=== PATIENT | female | born 1970 | race Caucasian/White ===

== ENCOUNTER 2020-08-12 08:47 | Outpatient (REF) | payer OTHER, SELFPAY | END 2020-08-12 08:48 | disposition home or self-care (01) | LOC: HO.HAP 08:47 | PROVIDERS: Visit Provider Internal Medicine | DX: Z46.1 Encounter for fitting and adjustment of hearing aid (principal) | CPT/HCPCS: V5266 ==

== ENCOUNTER → 2021-03-30 11:16 | Outpatient (BNVA) | payer SELFPAY | PROVIDERS: PCP Internal Medicine; Visit Provider Internal Medicine | DX: Z02.79 Encounter for issue of other medical certificate (principal) ==

== ENCOUNTER 2021-03-30 15:12 | Outpatient (REF) | payer OTHER, SELFPAY | END 2021-03-30 15:13 | disposition home or self-care (01) | LOC: HO.HAP 15:12 | PROVIDERS: Visit Provider Internal Medicine | DX: Z46.1 Encounter for fitting and adjustment of hearing aid (principal); H90.3 Sensorineural hearing loss, bilateral | CPT/HCPCS: V5266 ==

== ENCOUNTER 2021-04-09 08:29 | Outpatient (REF) | payer OTHER, SELFPAY ==
[2021-04-09 11:28] LABS: Glucose Urine UA NEG (NEG); Leukocyte Esterase Urine TRACE (NEG); Nitrite Urine NEG (NEG); Specific Gravity - Urine <= 1.005 (1.005-1.025); Urine Blood NEG (NEG); Urine Ketones NEG (NEG); Urine Protein NEG (NEG-TRACE)
[2021-04-09 11:30] LABS: Appearance Urine HAZY; Color Urine STRAW
[2021-04-09 11:47] LABS: Bacteria Urine TRACE /LPF; RBC Urine 0-2 /HPF (0); Squamous Epithelial Cell Urine 1+ /LPF
== END 2021-04-09 08:30 | disposition home or self-care (01) ==
LOC: HO.HMGCLDS 08:29
PROVIDERS: PCP Internal Medicine; Visit Provider Internal Medicine
DX: R30.0 Dysuria (principal)
CPT/HCPCS: 81001

== ENCOUNTER 2021-06-15 07:59 | Outpatient (REF) | payer OTHER, SELFPAY ==
--- NOTE | 2021-06-15 13:43 | MHC.AU.AHA ---
Adult Audiological Evaluation Date of Visit: 06/15/21 Flake Cutter Operator Used: Not Applicable Reason for Appointment: Audiologic re-evaluation due to question of change in hearing ability. 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 She notes the right aid obtained from [employer] in 2013 has intermittently been changing sound quality with brief episodes of shutting down. Previous Hearing Test Results: 09/04/2013 [facility] Right Ear - Severe to profound mixed hearing loss. Left Ear - Profound sensorineural hearing loss. Speech discrimination testing was not performed. Medical History: Medical History: Unremarkable Medical History Medication List: None Hearing Instrument History- Right Ear: Resort Manager: Fluent Home Model: Envestnet SP 5 [employer] Serial Number: [id number] Battery Size: 13 Repair Warranty: Loss and Damage Warranty: Dispensed By: [facility] Date of Fittin Hearing Instrument History- Left Ear: Resort Manager: None Otoscopy: Right Ear: Unremarkable Left Ear: Unremarkable Tympanometry: Tympanometry performed due to: To assess integrity of the middle ear system Right Ear: Hypercompliant Middle Ear System (Type Ad) Left Ear: Hypercompliant Middle Ear System (Type Ad) Hearing Evaluation: Transducer(s) Used: Insert Earphones Bone Conduction Method: Conventional Audiometry Stimuli Used: Pure Tones Right Ear: Description of Hearing: Severe to profound mixed hearing loss. Left Ear: Description of Hearing: Profound sensorineural hearing loss. Word Discrimination: Method: Monitored Live Voice Word Lists Used: NU-6 Right Ear: 48% at 105 dB HL Left Ear: CNT Comparison: Compared to most recent evaluation: Right ear has decreased 5-10 dB at 250-1000 Hz with the remaining frequencies stable. Recommendations: Trial with new amplification is recommended. Medical clearance from a physician is required before fitting. Obtaining prior authorization from insurance for new right hearing aid. Hearing Aid Fitting will be scheduled when all materials arrive. Hearing aid maintenance performed today on current aid. Current hearing aid reprogrammed with updated test results. Audiological re-evaluation in one year. Will send a reminder card Diagnosis: Primary Diagnosis: H90.3 Bilateral Sensorineural Hearing Loss Services Performed: Comprehensive Audiological Evaluation (CPT 84955) Tympanometry (CPT 10392) Signature: Provider: Maxim Cortes, LUCIANA-A
--- NOTE | 2021-06-16 12:22 | MHC.AU.HAS ---
Hearing Aid Evaluation Date of Visit: 06/15/21 Historical Information: Description of Hearing: Right Ear - Severe to profound sensorineural hearing loss with 48% speech understanding at 105 dB HL. Left Ear - Profound sensorineural hearing loss with no speech discrimination ability. Current personal amplification information, if applicable: Right Ear - Oticon Hudson SP5 BTE Summary: Due to the age of the current hearing aid and the intermittent problem with function of the aid, recommend a new hearing aid for the right ear to better facilitate communication. Hearing Aid Prescription: Based on the individual?s shared listening needs, communication environments, dexterity, desire for connectivity, and personal preferences, the following prescription for amplification has been made: Right ear: Candy Department Manager: OtPurewine Model: Xceed 2 BTE SP Battery Size: 13 Color: 90 -Chroma Beige Tubing: Tube Lock Type of Mold: Microsoft Hypoallergenic Shell with [place]omac Lock Left ear: Candy Department Manager: None Plan of Care: Patient wishes to purchase hearing aids as prescribed Action Taken/Action Needed: Earmold Impressions Taken Prior authorization to be requested Medical Clearance to be requested from PCP/ENT Hearing Instrument Fitting to be scheduled when materials arrive Primary Diagnosis: H90.3 Bilateral Sensorineural Hearing Loss Signature: Provider: Maxim Cortes, CCC-A
--- NOTE | 2021-06-16 12:23 | MHC.AU.MED ---
Medical Clearance for Hearing Instrumentation Date: 06/16/21 Patient Name: Sharonda Florence Date of : 1970 Primary Care Provider: Referring Provider: Henrik Skelton MD We have seen your patient on 06/15/21 and have determined that they are a candidate for amplification (See accompanying report). Specifically, they would benefit from: Hearing aid use in the right ear There is a statute that addresses Medical Evaluation Requirements prior to fitting a patient with a hearing aid. According to [place] statute 265 CMR:6.03(1), (a) General. Except as provided in 265 CMR 6.03(1)(b), a reporting process consultant shall not sell a hearing aid unless the prospective user has presented to the reporting process consultant a written statement signed by a licensed physician that states that the patient's hearing loss has been medically evaluated and the patient may be considered a candidate for a hearing aid. The medical evaluation must have taken place within the preceding six months. Please note: Due to the [place] Statute referenced above, we cannot accept a signature other than that of a licensed physician. [place] and [place] signatures cannot be accepted. I am in agreement with the above recommendation. There is no medical contraindication for hearing instrumentation. Physician Signature Date Physician Name (Printed)
== END 2021-06-15 08:00 | disposition home or self-care (01) ==
LOC: HO.SH 07:59
PROVIDERS: Visit Provider Internal Medicine
DX: Z46.1 Encounter for fitting and adjustment of hearing aid (principal); H90.3 Sensorineural hearing loss, bilateral
CPT/HCPCS: 92557; 92567; 92590; V5275

== ENCOUNTER 2022-02-05 07:55 | Outpatient (REF) | payer OTHER, SELFPAY ==
[2022-02-05 08:06] LABS: MANUAL DIFF FLAG NO
[2022-02-05 08:16] LABS: Basophils Percent Auto 0.6 % (0-2); Eosinophils Absolute Auto 0.1 X10*3/uL (0.0-0.4); Eosinophils Percent Auto 2.2 % (0-4); Hematocrit 37.4 % (37.0-47.0); Hemoglobin 12.4 g/dl (12.0-16.0); Lymphocytes Absolute Auto 1.3 X10*3/uL (1.2-4.9); Lymphocytes Percent Auto 40.4 % (20-40); Mean Corpuscular HGB Conc 33.2 g/dl (31.0-35.0); Mean Corpuscular Hemoglobin 31.6 pg (27.0-33.0); Mean Corpuscular Volume 95.4 fL (80.0-98.0); Mean Platelet Volume 8.6 fL (9.4-12.3); Monocytes Absolute Auto 0.3 X10*3/uL (0.1-1.2); Monocytes Percent Auto 10.9 % (2-11); Neutrophils Absolute Auto 1.4 x10*3/uL (2.0-8.3); Neutrophils Percent Auto 45.9 % (45-73); Platelet Count 230 X10*3/uL (160-400); Red Blood Count 3.92 X10*6/uL (4.20-5.50); Red Cell Distribution Width 12.7 % (11.0-16.0); White Blood Count 3.1 X10*3/uL (4.8-10.8)
[2022-02-05 09:13] LABS: Alanine Aminotransferase 30 U/L (0-31); Albumin Level 4.5 g/dL (3.5-5.0); Alkaline Phosphatase 77 U/L (39-117); Anion Gap 11 (12-20); Aspartate Amino Transferase 35 U/L (5-31); Bilirubin Total 0.7 mg/dL (0.0-1.0); Blood Urea Nitrogen 18 mg/dL (9-16); Calcium 9.1 mg/dL (8.4-10.2); Carbon Dioxide 28 mmol/L (22-29); Chloride 105 mmol/L (96-108); Cholesterol 162 mg/dL; Estimated Glomerular Filt Rate > 60; Glucose Fasting 99 mg/dL (60-99); HDL Cholesterol 76 mg/dL; LDL Cholesterol Calculated 81 mg/dl; Potassium 4.2 mmol/L (3.3-5.1); Sodium 140 mmol/L (135-145); Triglycerides 29 mg/dL; Vitamin D 25-OH Total 23.6 ng/mL (>30)
[2022-02-05 09:21] LABS: Rheumatoid Factor < 15.0 IU/mL (<15.0)
[2022-02-05 09:24] LABS: Appearance Urine HAZY; Color Urine YELLOW; Glucose Urine UA NEG (NEG); Leukocyte Esterase Urine 2+ (NEG); Nitrite Urine POS (NEG); Specific Gravity - Urine 1.025 (1.005-1.025); UACC Culture Trigger YES; Urine Blood TRACE (NEG); Urine Ketones NEG (NEG); Urine Protein NEG (NEG-TRACE)
[2022-02-05 10:00] LABS: Bacteria Urine 4+ /LPF; Squamous Epithelial Cell Urine 4+ /LPF
[2022-02-07 22:13] LABS: Lyme Abs Screen <0.90 index
[2022-02-08 06:14] LABS: Folate 15.2 ng/mL (> or = 4.0); Vitamin B12 347 pg/mL (200-900)
[2022-02-09 08:25] LABS: Anti Nuclear Antibody Screen NEGATIVE (NEGATIVE)
== END 2022-02-05 07:56 | disposition home or self-care (01) ==
LOC: HO.LAB 07:55
PROVIDERS: PCP Internal Medicine; Visit Provider Nurse Practitioner Family
DX: Z13.29 Encounter for screening for other suspected endocrine disorder (principal); Z13.220 Encounter for screening for lipoid disorders; R53.83 Other fatigue; M25.50 Pain in unspecified joint
CPT/HCPCS: 36415; 80053; 80061; 81001; 81003; 82306; 82607; 82746; 84443; 85025; 86038; 86039; 86431; 86617; 86618; 87086; 87088; 87186

== ENCOUNTER 2022-05-09 16:54 | Outpatient (REF) | payer OTHER, SELFPAY ==
--- NOTE | ~2022-05-09 | XR_ITS ---
EXAMINATION: XR ELBOW, LEFT XR ELBOW, RIGHT XR HAND, LEFT XR HAND, RIGHT CLINICAL INFORMATION: Pain COMPARISON: None TECHNIQUE: 3 views of each elbow. 3 views of each hand. FINDINGS: Left elbow: No fracture or dislocation. Alignment is maintained. Joint spaces are maintained. No elbow joint effusion. The soft tissues are unremarkable. Right elbow: No fracture or dislocation. Alignment is maintained. Joint spaces are maintained. No elbow joint effusion. The soft tissues are unremarkable. Left hand: No fracture or dislocation. Alignment is maintained. Joint spaces are maintained. Small osteophytes at the third metacarpophalangeal joint. The soft tissues are unremarkable. No osseous erosions. Right hand: No fracture or dislocation. Alignment maintained. Joint spaces are maintained. Small osteophytes of the third metacarpophalangeal joint. The soft tissues are unremarkable. No osseous erosion. XR/XR elbow RT 2V IMPRESSION: Unremarkable appearance of both elbows. Mild degenerative change at both hands involving the third metacarpophalangeal joints with small osteophytes present. No osseous erosions.
--- NOTE | ~2022-05-09 | XR_ITS ---
EXAMINATION: XR KNEE, LEFT XR KNEE, RIGHT CLINICAL INFORMATION: Pain COMPARISON: None TECHNIQUE: 2 views of each knee upright FINDINGS: Left knee: No fracture or subluxation. Compartmental joint spaces are maintained. Small marginal osteophytes of the patellofemoral compartment. No joint effusion. The soft tissues are unremarkable. Right knee: No fracture or subluxation. Compartmental joint spaces are maintained. Small marginal osteophytes of the patellofemoral compartment. No joint effusion. The soft tissues are unremarkable. XR/XR knee RT 2V IMPRESSION: Mild degenerative changes at the patellofemoral compartments bilaterally. Otherwise unremarkable appearance of both knees.
--- NOTE | ~2022-05-09 | XR_ITS ---
EXAMINATION: XR KNEE, LEFT XR KNEE, RIGHT CLINICAL INFORMATION: Pain COMPARISON: None TECHNIQUE: 2 views of each knee upright FINDINGS: Left knee: No fracture or subluxation. Compartmental joint spaces are maintained. Small marginal osteophytes of the patellofemoral compartment. No joint effusion. The soft tissues are unremarkable. Right knee: No fracture or subluxation. Compartmental joint spaces are maintained. Small marginal osteophytes of the patellofemoral compartment. No joint effusion. The soft tissues are unremarkable. XR/XR knee LT 2V IMPRESSION: Mild degenerative changes at the patellofemoral compartments bilaterally. Otherwise unremarkable appearance of both knees.
--- NOTE | ~2022-05-09 | XR_ITS ---
EXAMINATION: XR ELBOW, LEFT XR ELBOW, RIGHT XR HAND, LEFT XR HAND, RIGHT CLINICAL INFORMATION: Pain COMPARISON: None TECHNIQUE: 3 views of each elbow. 3 views of each hand. FINDINGS: Left elbow: No fracture or dislocation. Alignment is maintained. Joint spaces are maintained. No elbow joint effusion. The soft tissues are unremarkable. Right elbow: No fracture or dislocation. Alignment is maintained. Joint spaces are maintained. No elbow joint effusion. The soft tissues are unremarkable. Left hand: No fracture or dislocation. Alignment is maintained. Joint spaces are maintained. Small osteophytes at the third metacarpophalangeal joint. The soft tissues are unremarkable. No osseous erosions. Right hand: No fracture or dislocation. Alignment maintained. Joint spaces are maintained. Small osteophytes of the third metacarpophalangeal joint. The soft tissues are unremarkable. No osseous erosion. XR/XR hand LT 2V IMPRESSION: Unremarkable appearance of both elbows. Mild degenerative change at both hands involving the third metacarpophalangeal joints with small osteophytes present. No osseous erosions.
--- NOTE | ~2022-05-09 | XR_ITS ---
EXAMINATION: XR ELBOW, LEFT XR ELBOW, RIGHT XR HAND, LEFT XR HAND, RIGHT CLINICAL INFORMATION: Pain COMPARISON: None TECHNIQUE: 3 views of each elbow. 3 views of each hand. FINDINGS: Left elbow: No fracture or dislocation. Alignment is maintained. Joint spaces are maintained. No elbow joint effusion. The soft tissues are unremarkable. Right elbow: No fracture or dislocation. Alignment is maintained. Joint spaces are maintained. No elbow joint effusion. The soft tissues are unremarkable. Left hand: No fracture or dislocation. Alignment is maintained. Joint spaces are maintained. Small osteophytes at the third metacarpophalangeal joint. The soft tissues are unremarkable. No osseous erosions. Right hand: No fracture or dislocation. Alignment maintained. Joint spaces are maintained. Small osteophytes of the third metacarpophalangeal joint. The soft tissues are unremarkable. No osseous erosion. XR/XR hand RT 2V IMPRESSION: Unremarkable appearance of both elbows. Mild degenerative change at both hands involving the third metacarpophalangeal joints with small osteophytes present. No osseous erosions.
--- NOTE | ~2022-05-09 | XR_ITS ---
EXAMINATION: XR ELBOW, LEFT XR ELBOW, RIGHT XR HAND, LEFT XR HAND, RIGHT CLINICAL INFORMATION: Pain COMPARISON: None TECHNIQUE: 3 views of each elbow. 3 views of each hand. FINDINGS: Left elbow: No fracture or dislocation. Alignment is maintained. Joint spaces are maintained. No elbow joint effusion. The soft tissues are unremarkable. Right elbow: No fracture or dislocation. Alignment is maintained. Joint spaces are maintained. No elbow joint effusion. The soft tissues are unremarkable. Left hand: No fracture or dislocation. Alignment is maintained. Joint spaces are maintained. Small osteophytes at the third metacarpophalangeal joint. The soft tissues are unremarkable. No osseous erosions. Right hand: No fracture or dislocation. Alignment maintained. Joint spaces are maintained. Small osteophytes of the third metacarpophalangeal joint. The soft tissues are unremarkable. No osseous erosion. XR/XR elbow LT 2V IMPRESSION: Unremarkable appearance of both elbows. Mild degenerative change at both hands involving the third metacarpophalangeal joints with small osteophytes present. No osseous erosions.
== END 2022-05-09 16:55 | disposition home or self-care (01) ==
LOC: HO.XRAY 16:54
PROVIDERS: PCP Internal Medicine; Visit Provider Internal Medicine
DX: M25.50 Pain in unspecified joint (principal)
CPT/HCPCS: 73070; 73120; 73560

== ENCOUNTER 2023-05-03 13:35 | Outpatient (AMB) | payer OTHER, SELFPAY ==
[2023-05-03 13:49] VITALS: BP 122/70; PULSE 77; O2SAT 98
--- NOTE | 2023-05-03 13:49 | MHC.PC.OV ---
Vital Signs 05/03/23 13:49 Height 5 ft 2.5 in BMI Reason not done Patient refused/unable BP 122/70 Blood Pressure Location Lt brachial Position Sitting Pulse 77 Pulse Source Pulse Oximeter Pulse Oximetry (%) 98 Oxygen Delivery Method Room Air Intake Visit Reasons: f/u Allergies codeine [CODEINE] Allergy (Intermediate, Verified 05/03/23 13:49) NAUSEA morphine Allergy (Unknown, Verified 05/03/23 13:49) nausea meperidine [Demerol] Adverse Reaction (Unknown, Verified 05/03/23 13:49) nausea,vomt From DEMEROL Adverse Reaction (Intermediate, Uncoded 05/03/23 13:49) NAUSEA Codeine Sulfate Adverse Reaction (Unknown, Uncoded 05/03/23 13:49) nausea,vomiting Medication List - Last Reconciled 05/03/23 by Henrik Skelton MD cholecalciferol (vitamin D3) 25 mcg PO DAILY meloxicam 7.5 mg PO DAILY multivitamin 1 tab PO DAILY omeprazole 20 mg PO DAILY sertraline 25 mg PO DAILY Tobacco use date assessed: 05/03/23 Dental Screening Dental Screen Date: 05/03/23 Did you have a dental visit in the last 12 months?: Yes Did you have a dental problem in the last 6 months where you did not have access to dental care?: No Was dental information given to patient?: Patient has dentist HPI f/u HPI Details 52-year-old overweight female with a history of GERD chronic back pain having polyarthralgia last seen in April 2022 coming in for follow-up. Multiple x-rays requested patient is up-to-date with colonoscopy, mammogram is due. Knee x-rays done showed mild degenerative changes bilateral, elbow x-ray shows mild degenerative changes both hands unremarkable elbow. Patient refused weight complains of numbness of the hands did check for the pulse and they were normal. Patient was asking for higher dose of the pain medication for the knees and the hands. As for anxiety this is stable. [facility] Medical History (Updated 05/03/23 @ 14:21 by Henrik Skelton MD) Basal 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 Bad odor of urine Fatigue Polyarthralgia Anxiety Surgical History (Updated 05/06/22 @ 12:13 by Henrik Skelton MD) History of cataract surgery Status post laminectomy with spinal fusion History of lumbar fusion History of delivery Social History (Updated 02/04/22 @ 12:33 by SHAHRZAD Loaiza) Housing: House Alcohol intake: never Patient Tobacco Use Status: Never used Tobacco e-Cigarette/Vaping Use: Never Used Second Hand Smoke Exposure: No service: No Current occupational status: unemployed Cognitive needs: No Hearing needs: Yes (hearing aide) Vision needs: Yes (reading glasses) Questionnaire PHQ-9 Over the last 2 weeks, how often have you been bothered by any of the following problems? 1. Little interest or pleasure in doing things: not at all 2. Feeling down, depressed, or hopeless: not at all 3. Trouble falling or staying asleep, or sleeping too much: not at all 4. Feeling tired or having little energy: not at all 5. Poor appetite or overeating: not at all 6. Feeling bad about yourself - or that you are a failure or have let yourself or your family down: not at all 7. Trouble concentrating on things, such as reading the newspaper or watching television: not at all 8. Moving or speaking so slowly that other people could have noticed. Or the opposite - being so fidgety or restless that you have been moving around a lot more than usual: not at all 9. Thoughts that you would be better off or of hurting yourself in some way: not at all Total score: 0 Depression Screening Interpretation: Negative Source: Developed by Drs. Atul Aguilar, Cyndi Baig, Eze Purvis and colleagues, with an educational alisha from [employer]). Thrive Questionnaire Date Thrive assessed: 05/03/23 I am a: Patient What is your living situation today?: I have a steady place to live Within the past 12 months, did the food you bought not last and you didn't have the money to get more?: Never true Within the past 12 months, did you worry whether your food would run out before you got money to buy more?: Never true Do you have trouble paying for medicines?: No Do you have trouble getting transportation to medical appointments?: No Do you have trouble paying your heating and electricity bill?: No Do you have trouble taking care of your child, family member or friend?: No Do you have trouble with day-to-day activities such as bathing, preparing meals, shopping, managing finances, etc.?: No Are you currently unemployed and looking for a job?: No Are you interested in more education?: No Currently or been in a relationship where the following occur: no concerns reported AUDIT C Alcohol Use Questionnaire (AUDIT-C) 1. How often do you have a drink containing alcohol?: Never Total Score: 0 Score Reviewed/Action Taken: No ZEINA-7 AMB Questionnaire ZEINA-7 Date ZEINA - 7 assessed: 05/03/23 Feeling nervous, anxious, or on edge: 1 = Several days Not being able to stop or control worryin = Several days Worrying too much about different things: 1 = Several days Trouble relaxin = Not at all Being so restless that it is hard to sit still: 0 = Not at all Becoming easily annoyed or irritable: 0 = Not at all Feeling afraid as if something awful might happen: 0 = Not at all Total ZEINA-7 score (0-4 normal; 5-9 mild; 10-14 moderate; 15-21 severe): 3 Source: Developed by Drs. Atul Aguilar, Cyndi Baig, Eze Purvis and colleagues, with an educational alisha from [employer]). Physical exam (Primary Care) Vital Signs: Last Vital Signs Pulse 77 05/03/23 13:49 BP 122/70 05/03/23 13:49 Pulse Ox 98 05/03/23 13:49 Oxygen Delivery Method Room Air 05/03/23 13:49 Tobacco/Smoking Status: Tobacco use Status Tobacco use date assessed 05/03/23 05/03/23 13:55 Patient Tobacco Use Status Never used Tobacco 05/03/23 13:55 e-Cigarette/Vaping Use Never Used 05/03/23 13:55 PHQ-9: PHQ-9 Score PHQ-9: Total score 0 05/03/23 13:55 Depression Screening Interpretation: Negative Thrive Assessment: Date of Thrive Assessment Date Thrive assessed 05/03/23 05/03/23 13:55 Currently or been in a relationship where the following occur: no concerns reported Const General: alert; No acute distress Eyes Conjunctivae: conjunctivae normal Resp Auscultation: clear to auscultation bilaterally Cardio Rate: regular rate Rhythm: regular rhythm GI Inspection: Yes normal to inspection Extrem General: Yes normal to inspection and No edema Assessment and Plan Assessment & Plan (1) Breast cancer screening by mammogram: Code(s): Z12.31 - Encounter for screening mammogram for malignant neoplasm of breast (2) Generalized anxiety disorder: Code(s): F41.1 - Generalized anxiety disorder Plan: Continue with medications as needed (3) GERD (gastroesophageal reflux disease): Code(s): K21.9 - Gastro-esophageal reflux disease without esophagitis Plan: Avoid the foods that causes that usually spicy foods, tomato products, juices, coffee, soda and foods that your sensitive to. After eating do not lie down, allow 3-4 hours before in lie down. And keep the head of bed above 30 degrees to avoid the acid from going up. (4) Osteoarthritis, knee: Code(s): M17.9 - Osteoarthritis of knee, unspecified Plan: Keep active. Anti-inflammatories to help. Take with food (5) Cervical cancer screening declined: Code(s): Z53.20 - Procedure and treatment not carried out because of patient's decision for unspecified reasons (6) Cervical cancer screening: Code(s): Z12.4 - Encounter for screening for malignant neoplasm of cervix (7) Bilateral hand numbness: Code(s): R20.0 - Anesthesia of skin Orders: Orders Complete Blood Count Auto Diff Today K21.9 - Gastro-esophageal reflux disease without esophagitis Thyroid Stimulating Hormone Today K21.9 - Gastro-esophageal reflux disease without esophagitis NE electromyogram (EMG) Today R20.0 - Anesthesia of skin Lipid Panel Today E78.00 - Pure hypercholesterolemia, unspecified, R20.0 - Anesthesia of skin Vitamin B12 and Folate Today R20.0 - Anesthesia of skin Vitamin D 25-OH Total Today R20.0 - Anesthesia of skin MM tomosynthesis screening BI Today Z12.31 - Encounter for screening mammogram for malignant neoplasm of breast Comprehensive Met. Panel Today K21.9 - Gastro-esophageal reflux disease without esophagitis Free T4 (Free Thyroxine) Today K21.9 - Gastro-esophageal reflux disease without esophagitis NE nerve conduction velocity Today R20.0 - Anesthesia of skin Referrals [facility] Referral Z12.4 - Encounter for screening for malignant neoplasm of cervix Medications: Changed From meloxicam 7.5 mg PO DAILY 90 tabs 1RF M25.50 - Pain in unspecified joint To meloxicam 15 mg PO DAILY 90 tabs 1RF M25.50 - Pain in unspecified joint Coding Level of Care Code Est Pt Level 4 (51924) Diagnoses Breast cancer screening by mammogram Z12.31 Generalized anxiety disorder F41.1 GERD (gastroesophageal reflux disease) K21.9 Osteoarthritis, knee M17.9 Cervical cancer screening declined Z53.20 Cervical cancer screening Z12.4 Bilateral hand numbness R20.0 Additional Codes PHQ-9 - 15836 - PHQ-9 Billing: ([id number])
== END 2023-05-03 14:31 | disposition home or self-care (01) ==
PROVIDERS: PCP Internal Medicine; Visit Provider Internal Medicine
DX: K21.9 Gastro-esophageal reflux disease without esophagitis (principal); Z12.31 Encounter for screening mammogram for malignant neoplasm of breast; F41.1 Generalized anxiety disorder; M17.9 Osteoarthritis of knee, unspecified; Z53.20 Procedure and treatment not carried out because of patient's decision for unspecified reasons; R20.0 Anesthesia of skin
CPT/HCPCS: 99214

== ENCOUNTER 2023-05-10 08:50 | Outpatient (REF) | payer OTHER, SELFPAY ==
--- NOTE | 2023-05-10 08:58 | EMG_ITS ---
Please see scanned EMG / Nerve Conduction Report. MTDD
[2023-05-10 09:19] LABS: MANUAL DIFF FLAG NO
[2023-05-10 09:36] LABS: Basophils Percent Auto 0.5 % (0-2); Eosinophils Absolute Auto 0.1 X10*3/uL (0.0-0.4); Eosinophils Percent Auto 1.4 % (0-4); Hematocrit 38.1 % (37.0-47.0); Hemoglobin 12.7 g/dl (12.0-16.0); Lymphocytes Absolute Auto 1.4 X10*3/uL (1.2-4.9); Lymphocytes Percent Auto 32.9 % (20-40); Mean Corpuscular HGB Conc 33.3 g/dl (31.0-35.0); Mean Corpuscular Hemoglobin 31.4 pg (27.0-33.0); Mean Corpuscular Volume 94.1 fL (80.0-98.0); Mean Platelet Volume 8.6 fL (9.4-12.3); Monocytes Absolute Auto 0.4 X10*3/uL (0.1-1.2); Monocytes Percent Auto 8.5 % (2-11); Neutrophils Absolute Auto 2.5 x10*3/uL (2.0-8.3); Neutrophils Percent Auto 56.7 % (45-73); Platelet Count 233 X10*3/uL (160-400); Red Blood Count 4.05 X10*6/uL (4.20-5.50); Red Cell Distribution Width 12.7 % (11.0-16.0); White Blood Count 4.3 X10*3/uL (4.8-10.8)
[2023-05-10 10:07] LABS: Alanine Aminotransferase 16 U/L (0-31); Albumin Level 4.5 g/dL (3.5-5.0); Alkaline Phosphatase 85 U/L (39-117); Anion Gap 13 (12-20); Aspartate Amino Transferase 28 U/L (5-31); Bilirubin Total 0.7 mg/dL (0.0-1.0); Blood Urea Nitrogen 21 mg/dL (9-16); Calcium 9.4 mg/dL (8.4-10.2); Carbon Dioxide 26 mmol/L (22-29); Chloride 105 mmol/L (96-108); Cholesterol 162 mg/dL (<200); Estimated Glomerular Filt Rate > 60; Glucose Random 94 mg/dL (60-115); HDL Cholesterol 69 mg/dL (>40); LDL Cholesterol Calculated 87 mg/dL (<100); Potassium 3.8 mmol/L (3.3-5.1); Sodium 140 mmol/L (135-145); Total Protein 7.1 g/dL (6.5-8.0); Triglycerides 33 mg/dL (<150)
[2023-05-10 10:27] LABS: Free T4 (Free Thyroxine) 0.79 ng/dL (0.71-1.85); Thyroid Stimulating Hormone 2.06 uIU/mL (0.32-4.0)
[2023-05-10 10:33] LABS: Vitamin B12 580 pg/mL (200-900)
== END 2023-05-10 08:51 | disposition home or self-care (01) ==
LOC: HO.NEURO 08:50
PROVIDERS: PCP Internal Medicine; Visit Provider Internal Medicine
DX: R20.0 Anesthesia of skin (principal); K21.9 Gastro-esophageal reflux disease without esophagitis; E78.00 Pure hypercholesterolemia, unspecified; E55.9 Vitamin D deficiency, unspecified
CPT/HCPCS: 36415; 80053; 80061; 82306; 82607; 82746; 84439; 84443; 85025; 95885; 95913

== ENCOUNTER 2023-05-26 09:34 | Outpatient (AMB) | payer OTHER, SELFPAY ==
--- NOTE | 2023-05-26 09:35 | MHC.PC.OV ---
Vital Signs 05/26/23 09:36 Height 5 ft 2.5 in BP 124/76 Blood Pressure Location Lt brachial Position Sitting Pulse 75 Pulse Source Pulse Oximeter Temp Source Skin Pulse Oximetry (%) 99 Oxygen Delivery Method Room Air Intake Visit Reasons: Bunion-both feet Intake Note: pt states bilateral foot pain due to bunion with worsening symptoms Flight Surgeon Required: No Allergies codeine [CODEINE] Allergy (Intermediate, Verified 05/26/23 10:06) NAUSEA morphine Allergy (Unknown, Verified 05/26/23 10:06) nausea meperidine [Demerol] Adverse Reaction (Unknown, Verified 05/26/23 10:06) nausea,vomt From DEMEROL Adverse Reaction (Intermediate, Uncoded 05/26/23 10:06) NAUSEA Codeine Sulfate Adverse Reaction (Unknown, Uncoded 05/26/23 10:06) nausea,vomiting Medication List - Last Reconciled 05/26/23 by ALEXANDER Jett cholecalciferol (vitamin D3) 25 mcg PO DAILY meloxicam 15 mg PO DAILY multivitamin 1 tab PO DAILY omeprazole 20 mg PO DAILY sertraline 25 mg PO DAILY Tobacco use date assessed: 05/26/23 HPI Bunion-both feet HPI Details Patient is a 52-year-old female who presents today with bilateral bunions for long time now and worsening symptoms lately, she also reports pain with ambulation. Patient of Dr. Skelton. No shortness of breath or chest pain. No injury [facility] Medical History Basal 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 Bad odor of urine Fatigue Polyarthralgia Anxiety Surgical History History of cataract surgery Status post laminectomy with spinal fusion History of lumbar fusion History of delivery Social History Housing: House Alcohol intake: never Patient Tobacco Use Status: Never used Tobacco e-Cigarette/Vaping Use: Never Used Second Hand Smoke Exposure: No service: No Current occupational status: unemployed Cognitive needs: No Hearing needs: Yes (hearing aide) Vision needs: Yes (reading glasses) Questionnaire Thrive Questionnaire Date Thrive assessed: 05/03/23 AUDIT C Alcohol Use Questionnaire (AUDIT-C) 1. How often do you have a drink containing alcohol?: Never Total Score: 0 Score Reviewed/Action Taken: No ZEINA-7 AMB Questionnaire ZEINA-7 Date ZEINA - 7 assessed: 05/03/23 Source: Developed by Drs. Atul Aguilar, Cyndi Baig, Eze Purvis and colleagues, with an educational alisha from [employer]. Review of Systems Const Denies body aches, Denies chills, Denies fever(s) and Denies headache(s) ENT Denies dizziness, Denies otalgia, Denies headache(s), Denies nasal discharge, Denies sinus pain and Denies sore throat Card Denies chest pain, Denies edema, Denies lightheadedness and Denies dyspnea Resp Denies dyspnea and Denies wheezing GI Denies abdominal pain Denies dysuria Musc Reports as per HPI and Denies myalgias Skin/Breast Denies rash Neuro Denies dizziness and Denies headache(s) Aller/Immun Denies wheezing Physical exam (Primary Care) Vital Signs: Last Vital Signs Pulse 75 05/26/23 09:36 BP 124/76 05/26/23 09:36 Pulse Ox 99 05/26/23 09:36 Oxygen Delivery Method Room Air 05/26/23 09:36 Tobacco/Smoking Status: Tobacco use Status Tobacco use date assessed 05/26/23 05/26/23 09:36 Patient Tobacco Use Status Never used Tobacco 05/26/23 09:36 e-Cigarette/Vaping Use Never Used 05/26/23 09:36 Thrive Assessment: Date of Thrive Assessment Date Thrive assessed 05/03/23 05/26/23 09:36 Const General: cooperative and no acute distress Orientation/consciousness: patient oriented x3 HENMT Head: Yes normocephalic and Yes atraumatic Throat: Yes posterior oropharynx normal Eyes General: appearance normal, both eyes and all related structures Neck Neck: Yes normal visual inspection and Yes full ROM Resp Effort & Inspection: normal respiratory effort and able to speak in complete sentences Auscultation: clear to auscultation bilaterally, no crackles, no rales, no rhonchi and no wheezes Cardio Rate: regular rate Rhythm: regular rhythm Heart sounds: S1 normal heart sound present and S2 normal heart sound present GI Auscultation: normal bowel sounds Skin Other: Multiple toenails with brown discoloration Neuro General: patient oriented x3 Gait exam (Neuro): Normal gait present Extrem Other: Bilateral foot with medial bunions, no signs of infection noted General: Yes full ROM and No edema Assessment and Plan Assessment & Plan (1) Bunion, right foot: Code(s): M21.611 - Bunion of right foot (2) Bunion, left foot: Code(s): M21.612 - Bunion of left foot (3) Toenail fungus: Code(s): B35.1 - Tinea unguium Plan Podiatry referral for an evaluation and treatment Keep appointment with PCP as scheduled or follow-up sooner as needed Patient agreed with the plan Orders: Referrals Podiatry Referral B35.1 - Tinea unguium, M21.612 - Bunion of left foot, M21.611 - Bunion of right foot Coding Level of Care Code Est Pt Level 3 (08477) Diagnoses Bunion, right foot M21.611 Bunion, left foot M21.612 Toenail fungus B35.1
[2023-05-26 09:36] VITALS: BP 124/76; PULSE 75; O2SAT 99
== END 2023-05-26 11:12 | disposition home or self-care (01) ==
PROVIDERS: PCP Internal Medicine; Visit Provider Nurse Practitioner Family
DX: M21.611 Bunion of right foot (principal); M21.612 Bunion of left foot; B35.1 Tinea unguium
CPT/HCPCS: 99213

== ENCOUNTER 2023-08-09 13:32 | Outpatient (REF) | payer OTHER, SELFPAY | END 2023-08-09 13:33 | disposition home or self-care (01) | LOC: HO.LNP 13:32 | PROVIDERS: PCP Internal Medicine; Visit Provider Advanced Practice Midwife | DX: Z01.419 Encounter for gynecological examination (general) (routine) without abnormal findings (principal); N95.1 Menopausal and female climacteric states; R92.8 Other abnormal and inconclusive findings on diagnostic imaging of breast; H91.91 Unspecified hearing loss, right ear; Z97.5 Presence of (intrauterine) contraceptive device | CPT/HCPCS: 0353U; 87480; 87510; 87624; 87660; 88142 ==

== ENCOUNTER 2023-08-09 13:32 | Outpatient (AMB) | payer OTHER, SELFPAY ==
--- NOTE | 2023-08-09 13:34 | MHC.OFFVIS ---
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 Intake Note: thinks the Mirena fell out on it's own, has been having pain with intercourse Glass Lined Tank Repairer Required: No Information Interpreted: non-clinical & clinical Telephone Station Repairer: Telephone Station Repairer Present (Dianelys) Allergies codeine [CODEINE] Allergy (Intermediate, Verified 08/09/23 13:38) NAUSEA morphine Allergy (Unknown, Verified 08/09/23 13:38) nausea meperidine [Demerol] Adverse Reaction (Unknown, Verified 08/09/23 13:38) nausea,vomt From DEMEROL Adverse Reaction (Intermediate, Uncoded 08/09/23 13:38) NAUSEA Codeine Sulfate Adverse Reaction (Unknown, Uncoded 08/09/23 13:38) nausea,vomiting Medication List - Last Reconciled 08/09/23 by Asha Quiroga CNM cholecalciferol (vitamin D3) 25 mcg PO DAILY levonorgestrel (Mirena) intrauterine meloxicam 15 mg PO DAILY multivitamin 1 tab PO DAILY omeprazole 20 mg PO DAILY sertraline 25 mg PO DAILY Is last menstrual period known: No Patient : No HPI 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 She thinks her last PT Pap smear was about then also. She threw up soon after arrival but she thinks it is nerves she said she took her temperature and it was normal. She said she just had a mammogram the other day and they found a spot so she is very anxious and nervous about that.-later clarified she has a followup mammograms next Monday and then an appointment on the to speak to somebody to go over all of the results and make a plan. She is being seen at [facility] on [address] [place] [address] In reviewing plan for visit she suddenly felt like she was going to get sick again and went to the bathroom. She said she stopped having periods about 5 years ago but thought it was normal with the Mirena. She says it has been hurting her when she has sex for the last year so she has not been having sex often and the last time was about a month ago. She checks the string when she is in the shower and has not felt it in the last week and wonders if it fell out or something because she can not feel the string. In any case it has been bothering her. Clarifying what hurts her when she have sex it is the whole vagina that is sensitive PFS Medical History Basal 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 Bad odor of urine Fatigue Polyarthralgia Anxiety Surgical History History of cataract surgery Status post laminectomy with spinal fusion History of lumbar fusion History of delivery Family History (Updated 08/09/23 @ 13:49 by SHAHRZAD Monroe) Paternal Aunt Ovarian cancer Paternal Grandmother Breast cancer Maternal Grandmother Breast cancer Social History Housing: House Alcohol intake: never Patient Tobacco Use Status: Never used Tobacco e-Cigarette/Vaping Use: Never Used Second Hand Smoke Exposure: No service: No Current occupational status: unemployed Cognitive needs: No Hearing needs: Yes (hearing aide) Vision needs: Yes (reading glasses) Female Reproductive History Menstrual Age of Menarche: 11 control method: progestin IUCD (Inserted 08/04/2017.) Total pregnancies: 1 Full term: 1 Number of Living Children: 1 Date of last pap smear: 01/09/13 (negative) History of abnormal pap smear: Yes (2002 ASCUS) Date of Mammogram: 08/04/23 Physical Exam Vital Signs: BMI result Body Mass Index 31.6 Const General: healthy appearing, comfortable, no acute distress, well developed and alert Nutritional Appearance: average body habitus Orientation/consciousness: patient oriented x3 Limitations: no limitations HEENT Head: Yes normocephalic Neck Neck: Yes normal visual inspection Chest Chest palpation & inspection: normal inspection of the chest Breast/axilla inspection: normal inspection of the breasts and normal inspection of the axillae Breast/axilla palpation: normal palpation of the breasts and normal palpation of the axillae Resp Effort & Inspection: normal respiratory effort GI Inspection: Yes normal to inspection, No Abdominal wall edema and No distended Palpation (GI): Soft to palpation and nontender Other: Vagina is slightly reddened with thin atrophic postmenopausal mucosa thin white cream colored discharge which is scant cervix multiparous with Mirena strings visible in os. Cervix slightly friable with Pap., patient was not tender during the exam with touch of cervix or uterus which is small anteverted mobile nontender adnexa nontender however because of her complaint of pain I will order an ultrasound. General: Yes bladder normal to palpation External Female Exam: normal external appearance and normal appearance of the urethra Speculum Exam - Vagina: normal appearance of the vagina, normal palpation and normal vaginal discharge Speculum Exam - Cervix: normal appearance of the cervix, normal palpation and nontender Bimanual exam- vagina & uterus: normal bimanual exam, normal palpation, uterine size normal, bladder normal to palpation, consistency normal, normal palpation, uterine mobility normal, uterine shape normal, No Cervical tenderness present, non-tender and no cervical motion tenderness Bimanual Exam- Adnexa, other: normal adnexae, no masses, normal and No adnexal tenderness Neuro General: patient oriented x3 Assessment & Plan Assessment & Plan (1) Cervical cancer screening: Comment: History of abnormal 2002, last Pap 2012 Code(s): Z12.4 - Encounter for screening for malignant neoplasm of cervix (2) Hearing deficit: Comment: 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 Code(s): H91.90 - Unspecified hearing loss, unspecified ear (3) Encounter for gynecological examination with Papanicolaou smear of cervix: Code(s): Z01.419 - Encounter for gynecological examination (general) (routine) without abnormal findings (4) Presence of 52 mg levonorgestrel-releasing intrauterine device (IUD): Comment: per Patient inserted 08/04/2017 Code(s): Z97.5 - Presence of (intrauterine) contraceptive device (5) Perimenopausal symptoms: Code(s): N95.1 - Menopausal and female climacteric states (6) Atrophic vaginitis: Code(s): N95.2 - Postmenopausal atrophic vaginitis (7) Abnormal mammogram: Comment: Last Monday at [facility] and patient has follow-up mammogram and follow-up visits next Monday at [facility]. Code(s): R92.8 - Other abnormal and inconclusive findings on diagnostic imaging of breast Plan -----Discussed in this visit the following: healthy balanced diet, regular and consistent exercise, getting recommended health screens, doing the best she can for her particular health concerns, kegel exercises, pap smear screening and followup recommendations, mammography screening and SBE, normal changes in cycles in her life stage--- . 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 She thinks her last PT Pap smear was about then also. She threw up soon after arrival but she thinks it is nerves she said she took her temperature and it was normal. She said she just had a mammogram the other day and they found a spot so she is very anxious and nervous about that.-later clarified she has a followup mammograms next Monday and then an appointment on the to speak to somebody to go over all of the results and make a plan. She is being seen at [facility] breast center on [address] [place] [address] In reviewing plan for visit she suddenly felt like she was going to get sick again and went to the bathroom. She said she stopped having periods about 5 years ago but thought it was normal with the Mirena. She says it has been hurting her when she has sex for the last year so she has not been having sex often and the last time was about a month ago. She checks the string when she is in the shower and has not felt it in the last week and wonders if it fell out or something because she can not feel the string. In any case it has been bothering her. Clarifying what hurts her when she have sex--- it is the whole vagina that is sensitive. I am ordering a pelvic ultrasound just to assess because of her pain and her fear of cancer. I am ordering of FSH for her to get done so that we can assess whether not she is already in the menopausal zone If she is then we can consider after review of both that we may be able to remove her Mirena IU S as it is no longer necessary. In the meantime she is going for her follow-up mammograms and any diagnostic studies and a follow-up test the week after that at [facility] and she is very very anxious about the possibility of breast cancer and so if she needs to put off having the pelvic ultrasound, until she is after her dealing with all of the above that would be understandable. We will have an in-person visit after all is complete so that we can discuss whether not it is appropriate to remove her Mirena For the vaginal dryness I did discuss coral menopausal and menopausal atrophic vaginitis and that occasionally vaginal estrogens may also be used but not in this case where she is undergoing a breast cancer evaluation and that in general we recommend water-based lubrication and I wrote down in general terms what she could look for at [facility] or [facility] or [facility] or where ever she goes. Orders: Orders CT NG by PCR Today Z11.3 - Encounter for screening for infections with a predominantly sexual mode of transmission Bacterial Vaginosis Panel Today Z11.3 - Encounter for screening for infections with a predominantly sexual mode of transmission Pap Smear Today Z12.4 - Encounter for screening for malignant neoplasm of cervix Follicle Stimulating Hormone Today N95.1 - Menopausal and female climacteric states, N95.2 - Postmenopausal atrophic vaginitis, R92.8 - Other abnormal and inconclusive findings on diagnostic imaging of breast, Z01.419 - Encounter for gynecological examination (general) (routine) without abnormal findings, Z97.5 - Presence of (intrauterine) contraceptive device US pelvic and transvaginal Today N95.1 - Menopausal and female climacteric states, N95.2 - Postmenopausal atrophic vaginitis, R92.8 - Other abnormal and inconclusive findings on diagnostic imaging of breast, Z01.419 - Encounter for gynecological examination (general) (routine) without abnormal findings, Z12.4 - Encounter for screening for malignant neoplasm of cervix, Z97.5 - Presence of (intrauterine) contraceptive device Coding Level of Care Code New Pt Prev Care 40-64y(70239) Diagnoses Cervical cancer screening Z12.4 Hearing deficit H91.90 Encounter for gynecological examination with Papanicolaou smear of cervix Z01.419 Presence of 52 mg levonorgestrel-releasing intrauterine device (IUD) Z97.5 Perimenopausal symptoms N95.1 Atrophic vaginitis N95.2 Abnormal mammogram R92.8
[2023-08-09 13:35] VITALS: BP 130/70; BMI 31.6
== END 2023-08-09 15:41 | disposition home or self-care (01) ==
LOC: HO.HWSM 13:32
PROVIDERS: PCP Internal Medicine; Visit Provider Advanced Practice Midwife
DX: Z01.419 Encounter for gynecological examination (general) (routine) without abnormal findings (principal)
CPT/HCPCS: 99386

== ENCOUNTER 2023-08-15 15:25 | Outpatient (AMB) | payer OTHER, SELFPAY ==
[2023-08-15 15:27] VITALS: BP 130/74; PULSE 68; TEMP 37.6; O2SAT 96
--- NOTE | 2023-08-15 15:27 | MHC.PC.OV ---
Vital Signs 08/15/23 15:27 Height 5 ft 4 in BMI Reason not done Patient refused/unable BP 130/74 Blood Pressure Location Lt brachial Position Sitting Pulse 68 Pulse Source Pulse Oximeter Temp 99.6 F Temp Source Oral Pulse Oximetry (%) 96 Oxygen Delivery Method Room Air Intake Visit Reasons: TAYO kelley, Space Operations Required: No Allergies codeine [CODEINE] Allergy (Intermediate, Verified 08/15/23 15:31) NAUSEA morphine Allergy (Unknown, Verified 08/15/23 15:31) nausea meperidine [Demerol] Adverse Reaction (Unknown, Verified 08/15/23 15:31) nausea,vomt From DEMEROL Adverse Reaction (Intermediate, Uncoded 08/15/23 15:31) NAUSEA Codeine Sulfate Adverse Reaction (Unknown, Uncoded 08/15/23 15:31) nausea,vomiting Medication List - Last Reconciled 08/15/23 by Henrik Skelton MD azithromycin (Zithromax) For 250 mg dose pack: take 500 mg today (day 1), then 250 mg for 4 days (days 2-5) PO cholecalciferol (vitamin D3) 25 mcg PO DAILY levonorgestrel (Mirena) intrauterine meloxicam 15 mg PO DAILY multivitamin 1 tab PO DAILY omeprazole 20 mg PO DAILY sertraline 25 mg PO DAILY Tobacco use date assessed: 08/15/23 HPI TAYO kelley, HPI Details 52-year-old obese female with GERD bilateral hand numbness and generalized anxiety disorder last seen in April 2023. Patient's colonoscopy is up-to-date. Mammogram done August 04 showed a right breast newly apparent a symmetric area which needs additional imaging.. tomorrow. complains of cold jul 07, 2023, neg covid sore throat,fatigue, runny nose, chills cough. Patient also complaining about the weight now that she is perimenopausal she is now seeing increase in weight. Discussed about exercising and diet was concerned about depression but discussed that antidepressants like SSRI does cause weight gain. She back to often does not want to increase the dose now. Declined counseling [facility] Medical History (Updated 08/15/23 @ 15:45 by Henrik Skelton MD) Abnormal mammogram Basal 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 Bad odor of urine Fatigue Polyarthralgia Anxiety Surgical History History of cataract surgery Status post laminectomy with spinal fusion History of lumbar fusion History of delivery Family History (Updated 08/09/23 @ 13:49 by SHAHRZAD Monroe) Paternal Aunt Ovarian cancer Paternal Grandmother Breast cancer Maternal Grandmother Breast cancer Social History Housing: House Alcohol intake: never Patient Tobacco Use Status: Never used Tobacco e-Cigarette/Vaping Use: Never Used Second Hand Smoke Exposure: No service: No Current occupational status: unemployed Cognitive needs: No Hearing needs: Yes (hearing aide) Vision needs: Yes (reading glasses) Female Reproductive History Menstrual Age of Menarche: 11 Questionnaire PHQ-9 Over the last 2 weeks, how often have you been bothered by any of the following problems? 1. Little interest or pleasure in doing things: not at all 2. Feeling down, depressed, or hopeless: not at all 3. Trouble falling or staying asleep, or sleeping too much: not at all 4. Feeling tired or having little energy: not at all 5. Poor appetite or overeating: not at all 6. Feeling bad about yourself - or that you are a failure or have let yourself or your family down: not at all 7. Trouble concentrating on things, such as reading the newspaper or watching television: not at all 8. Moving or speaking so slowly that other people could have noticed. Or the opposite - being so fidgety or restless that you have been moving around a lot more than usual: not at all 9. Thoughts that you would be better off or of hurting yourself in some way: not at all Total score: 0 Depression Screening Interpretation: Negative Depression Screening Done: Yes Source: Developed by Drs. Atul Aguilar, Cyndi Baig, Eze Purvis and colleagues, with an educational alisha from [employer]. Thrive Questionnaire Date Thrive assessed: 05/03/23 AUDIT C Alcohol Use Questionnaire (AUDIT-C) 1. How often do you have a drink containing alcohol?: Never 3. How often do you have six or more drinks on one occasion?: Never Total Score: 0 Score Reviewed/Action Taken: No ZEINA-7 AMB Questionnaire ZEINA-7 Date ZEINA - 7 assessed: 08/15/23 Source: Developed by Drs. Atul Aguilar, Cyndi Baig, Eze Purvis and colleagues, with an educational alisha from [employer]. Physical exam (Primary Care) Vital Signs: Last Vital Signs Temp 99.6 F 08/15/23 15:27 Pulse 68 08/15/23 15:27 BP 130/74 08/15/23 15:27 Pulse Ox 96 08/15/23 15:27 Oxygen Delivery Method Room Air 08/15/23 15:27 Tobacco/Smoking Status: Tobacco use Status Tobacco use date assessed 08/15/23 08/15/23 15:28 Patient Tobacco Use Status Never used Tobacco 08/15/23 15:28 e-Cigarette/Vaping Use Never Used 08/15/23 15:28 PHQ-9: PHQ-9 Score PHQ-9: Total score 0 08/15/23 15:28 Depression Screening Interpretation: Negative Thrive Assessment: Date of Thrive Assessment Date Thrive assessed 05/03/23 08/15/23 15:28 Const Other: Pharyngeal wall mildly red but no definite swelling General: alert; No acute distress Eyes Conjunctivae: conjunctivae normal Resp Auscultation: clear to auscultation bilaterally Cardio Rate: regular rate Rhythm: regular rhythm GI Inspection: Yes normal to inspection Extrem General: Yes normal to inspection and No edema Assessment and Plan Assessment & Plan (1) Breast asymmetry: Comment: Right breast 08/04/2023 Code(s): N64.89 - Other specified disorders of breast Plan: Patient was advised follow-up mammogram patient is scheduled tomorrow (2) GERD (gastroesophageal reflux disease): Code(s): K21.9 - Gastro-esophageal reflux disease without esophagitis Plan: GERD plan on omeprazole (3) Generalized anxiety disorder: Code(s): F41.1 - Generalized anxiety disorder Plan: Continue with present medication (4) Bilateral hand numbness: Code(s): R20.0 - Anesthesia of skin Plan: Discussed about wearing wrist braces (5) Cough: Code(s): R05.9 - Cough, unspecified Plan: Will order for a chest x-ray since the cough has been going on for more than a month. RSV flu test requested, blood count and electrolytes. Discussed that I do not see any signs of bacterial infection. Orders: Orders SARS-CoV2/FLU/RSV Today R05.9 - Cough, unspecified Complete Blood Count Auto Diff Today R05.9 - Cough, unspecified XR chest 2V Today R05.9 - Cough, unspecified Comprehensive Met. Panel Today R05.9 - Cough, unspecified Medications: New azithromycin (Zithromax) For 250 mg dose pack: take 500 mg today (day 1), then 250 mg for 4 days (days 2-5) PO 6 tabs 0RF R05.9 - Cough, unspecified Coding Level of Care Code Est Pt Level 4 (85640) Diagnoses Breast asymmetry N64.89 GERD (gastroesophageal reflux disease) K21.9 Generalized anxiety disorder F41.1 Bilateral hand numbness R20.0 Cough R05.9 Additional Codes PHQ-9 - 14540 - PHQ-9 Billing: ([id number])
== END 2023-08-15 15:52 | disposition home or self-care (01) ==
PROVIDERS: PCP Internal Medicine; Visit Provider Internal Medicine
DX: N64.89 Other specified disorders of breast (principal); K21.9 Gastro-esophageal reflux disease without esophagitis; F41.1 Generalized anxiety disorder; R20.0 Anesthesia of skin; R05.9 Cough, unspecified
CPT/HCPCS: 99214

== ENCOUNTER 2023-08-15 16:00 | Outpatient (REF) | payer OTHER, SELFPAY ==
--- NOTE | ~2023-08-15 | XR_ITS ---
EXAMINATION: XR CHEST 2 VIEW CLINICAL INFORMATION: Cough COMPARISON: 08/06/2019 TECHNIQUE: PA and lateral views of the chest obtained. FINDINGS: The lungs are clear. There are no pleural effusions. The cardiomediastinal silhouette is normal. XR/XR chest 2V IMPRESSION: No acute cardiopulmonary disease.
[2023-08-15 16:14] LABS: MANUAL DIFF FLAG NO
[2023-08-15 17:35] LABS: Basophils Percent Auto 0.7 % (0-2); Eosinophils Absolute Auto 0.1 X10*3/uL (0.0-0.4); Eosinophils Percent Auto 2.6 % (0-4); Hematocrit 39.6 % (37.0-47.0); Hemoglobin 13.2 g/dl (12.0-16.0); Imm Gran Abs Auto 0.01 X10*3/uL (0.00-0.03); Imm Gran Pct Auto 0.2 % (0.0-0.4); Lymphocytes Absolute Auto 1.7 X10*3/uL (1.2-4.9); Lymphocytes Percent Auto 37.3 % (20-40); Mean Corpuscular HGB Conc 33.3 g/dl (31.0-35.0); Mean Corpuscular Hemoglobin 31.5 pg (27.0-33.0); Mean Corpuscular Volume 94.5 fL (80.0-98.0); Mean Platelet Volume 8.7 fL (9.4-12.3); Monocytes Absolute Auto 0.7 X10*3/uL (0.1-1.2); Monocytes Percent Auto 14.5 % (2-11); Neutrophils Absolute Auto 2.1 x10*3/uL (2.0-8.3); Neutrophils Percent Auto 44.7 % (45-73); Platelet Count 291 X10*3/uL (160-400); Red Blood Count 4.19 X10*6/uL (4.20-5.50); Red Cell Distribution Width 12.9 % (11.0-16.0); White Blood Count 4.6 X10*3/uL (4.8-10.8)
[2023-08-15 18:18] LABS: Alanine Aminotransferase 24 U/L (0-31); Albumin Level 4.6 g/dL (3.5-5.0); Alkaline Phosphatase 90 U/L (39-117); Anion Gap 14 (12-20); Aspartate Amino Transferase 27 U/L (5-31); Bilirubin Total 0.4 mg/dL (0.0-1.0); Blood Urea Nitrogen 22 mg/dL (9-16); Calcium 10.2 mg/dL (8.4-10.2); Carbon Dioxide 30 mmol/L (22-29); Chloride 101 mmol/L (96-108); Estimated Glomerular Filt Rate > 60; Glucose Random 84 mg/dL (60-115); Sodium 141 mmol/L (135-145); Total Protein 7.7 g/dL (6.5-8.0)
[2023-08-15 19:01] LABS: Influenza A PCR NEGATIVE (Negative); Influenza B PCR NEGATIVE (Negative); Resp Syncy Virus RNA Qual PCR NEGATIVE (Negative); SARS COV2 PCR INHOUSE NEGATIVE (Negative)
[2023-08-17 02:54] LABS: Follicle Stimulating Hormone 113.4 mIU/mL
== END 2023-08-15 16:01 | disposition home or self-care (01) ==
LOC: HO.XRAY 16:00
PROVIDERS: Advanced Practice Midwife; PCP Internal Medicine; Visit Provider Internal Medicine
DX: Z11.52 Encounter for screening for COVID-19 (principal); Z20.822 Contact with and (suspected) exposure to COVID-19; R05.9 Cough, unspecified; R92.8 Other abnormal and inconclusive findings on diagnostic imaging of breast; N95.2 Postmenopausal atrophic vaginitis; N95.1 Menopausal and female climacteric states; Z97.5 Presence of (intrauterine) contraceptive device
CPT/HCPCS: 0241U; 36415; 71046; 80053; 83001; 85025

== ENCOUNTER 2023-09-13 11:15 | Outpatient (AMB) | payer OTHER, MEDICARE, SELFPAY ==
--- NOTE | 2023-09-13 11:30 | A.OFFVIS_ITS ---
Intake Vital Signs 09/13/23 11:31 Height 5 ft 4 in Weight 172 lb BMI 29.5 BP 124/72 Intake Visit Reasons: Iud removal Intake Note: IUD removal Electronic Component Processor Required: No Information Interpreted: non-clinical & clinical Certified Control Systems Technician: Certified Control Systems Technician Present (Dianelys) Allergies codeine [CODEINE] Allergy (Intermediate, Verified 09/13/23 11:33) NAUSEA morphine Allergy (Unknown, Verified 09/13/23 11:33) nausea meperidine [Demerol] Adverse Reaction (Unknown, Verified 09/13/23 11:33) nausea,vomt From DEMEROL Adverse Reaction (Intermediate, Uncoded 09/13/23 11:33) NAUSEA Codeine Sulfate Adverse Reaction (Unknown, Uncoded 09/13/23 11:33) nausea,vomiting Is last menstrual period known: No HPI Iud removal HPI Details Patient is here for IUD removal she has the Mirena and she had an FSH recently done which shows that she is in the postmenopausal state. She says it still dry and hurts when she has sex she bought a water-based lubricant and it helps a little bit but not really all that much. She would like the IUD out She tells me the breast cancer scare got all checked out and she is fine. 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 Bad odor of urine Fatigue Polyarthralgia Anxiety Surgical History History of cataract surgery Status post laminectomy with spinal fusion History of lumbar fusion History of delivery Family History Paternal Aunt Ovarian cancer Paternal Grandmother Breast cancer Maternal Grandmother Breast cancer Social History Housing: House Alcohol intake: never Patient Tobacco Use Status: Never used Tobacco e-Cigarette/Vaping Use: Never Used Second Hand Smoke Exposure: No service: No Current occupational status: unemployed Cognitive needs: No Hearing needs: Yes (hearing aide) Vision needs: Yes (reading glasses) Female Reproductive History Menstrual Age of Menarche: 11 control method: progestin IUCD Total pregnancies: 1 Full term: 1 Number of Living Children: 1 Physical Exam Vital Signs: Last Vital Signs BP 124/72 09/13/23 11:31 BMI result Body Mass Index 29.5 External Female Exam: normal external appearance and normal appearance of the urethra Speculum Exam - Vagina: normal appearance of the vagina and normal vaginal discharge Speculum Exam - Cervix: normal appearance of the cervix and Cervical os closed Office Procedures IUD Insert/Removal Details Details: Speculum exam was done after discuss in of the lab results and the plan of care to remove the IUD because the FSH show she is in the menopausal range. Patient reiterated that she did want the IUD to be removed. Her cervix was visualized it is multiparous with Mirena strings visible vagina slightly dry consistent with perimenopause strings were easily grasped with ring forceps and with 1 cough the Mirena was removed there was no bleeding or difficulty. It was shown to the patient intact and she sat up and the visit progressed [id number] Removal Procedure code (CPT) selection complete Results Reviewed Results Reviewed: Name: Sharonda Florence Age/Sex: 52/F : 1970 Unit#: [id number] Attend Dr: Henrik Skelton MD Re08/15/23 Status: DEP REF Location: [facility] Disch: SPEC : [id number] MARIIA: 08/15/23 STATUS: COMP REQ : [id number] RECD: 08/15/23-[address]: Asha Quiroga CNM COMP: 08/17/23-253 ENTERED: 08/15/23-[address]: Henrik Skelton MD ORDERED: FSH Test Result Flag Reference FSH 113.4 mIU/mL Reference Range Follicular Phase 2.5-10.2 Mid-cycle Peak 3.1-17.7 Luteal Phase 1.5- 9.1 Postmenopausal 23.0-116.3 THIS TEST WAS PERFORMED AT: [facility] [address] [place] [id number] LONG DAS MD Name: Sharonda Florence Age/Sex: 52/F Attending: Asha Quiroga CNM : 1970 Submitted by: Asha Quiroga CNM Copies to: Henrik Skelton MD MR #: [id number] Status: DEP REF Collected: 08/09/23 Location: [facility] Received: 08/10/23 Interpretation Satisfactory for evaluation. Mild inflammation. Negative for intraepithelial lesion or malignancy. HPV mRNA E6/E7: NOT DETECTED This assay detects E6/E7 viral messenger RNA (mRNA) from 14 high-risk HPV types (16, 18, 31, 33, 35, 39, 45, 51, 52, 56, 58, 59, 66, 68) HPV testing performed by [facility] [place], [place]. See reference laboratory portion of the EMR for entire report. Clinical Information LMP: No menses, Mirena Previous PAP test:01/10/2013, WNL Material Received ThinPrep-Cervical Copies To Asha Quiroga CNM [address] [place] [address] [address]. [address] [place] [address] Henrik Skelton MD [address] [place] [address] Dr. [address] [place] [address] Electronically Signed By: YARELI Oseguera (ASCP) 08/14/23 1108 The Pap Test is a screening procedure with the inherent possibility of both false negative and false positive results. Results should be interpreted in the context of historic and current clinical findings. Reliability of the Pap Test is enhanced by performing the test on a regular repetitive basis. Patient: Sharonda Florence Age/Sex: 52/F MR#: [id number] Page 1 of 1 Assessment & Plan Assessment & Plan (1) Atrophic vaginitis: Code(s): N95.2 - Postmenopausal atrophic vaginitis (2) Perimenopausal symptoms: Code(s): N95.1 - Menopausal and female climacteric states (3) Presence of 52 mg levonorgestrel-releasing intrauterine device (IUD): Comment: per Patient inserted 08/04/2017 Code(s): Z97.5 - Presence of (intrauterine) contraceptive device (4) Encounter for IUD removal: Code(s): Z30.432 - Encounter for removal of intrauterine contraceptive device (5) Cervical cancer screening: Comment: History of abnormal 2002, last Pap 2012; 08/09/2023 Pap is negative with negative HPV. 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 She says it still dry and hurts when she has sex she bought a water-based lubricant and it helps a little bit but not really all that much. She would like the IUD out She tells me the breast cancer scare got all checked out and she is fine. She had to please schedule the ultrasound for a different time because of insurance problems, and she is wondering if she needs it now but she still is anxious to get checked out in every way. We will have a video visit after the ultrasound to review the results she is very relieved about the breast cancer scare being resolved. She is happy the Mirena is out and it did not hurt as much as she thought I reiterated the discussion about coral menopausal and menopausal dryness and that it is unfortunately of normal finding and to continue with the vaginal water-based lubricants. Discussed that sometimes vaginal hormones may be used but only after fully thorough discussion about the risks involved and full assessment. Orders: Orders AMB IUD Insertion/Removal - Patient Supply Today H91.90 - Unspecified hearing loss, unspecified ear, N95.1 - Menopausal and female climacteric states, N95.2 - Postmenopausal atrophic vaginitis, Z12.4 - Encounter for screening for malignant neoplasm of cervix, Z30.432 - Encounter for removal of intrauterine contraceptive device, Z97.5 - Presence of (intrauterine) contraceptive device Coding Level of Care Code Est Pt Level 3 (27317) Diagnoses Atrophic vaginitis N95.2 Perimenopausal symptoms N95.1 Presence of 52 mg levonorgestrel-releasing intrauterine device (IUD) Z97.5 Encounter for IUD removal Z30.432 Cervical cancer screening Z12.4 Hearing deficit H91.90 CPT Codes Details - CPT: 60589-JAS Removal ([id number])
[2023-09-13 11:31] VITALS: BP 124/72; BMI 29.5
== END 2023-09-13 14:46 | disposition home or self-care (01) ==
LOC: HO.HWSM 11:15
PROVIDERS: PCP Internal Medicine; Visit Provider Advanced Practice Midwife
DX: N95.2 Postmenopausal atrophic vaginitis (principal); N95.1 Menopausal and female climacteric states; Z30.432 Encounter for removal of intrauterine contraceptive device
CPT/HCPCS: 58301; 99213

== ENCOUNTER → 2023-09-13 11:15 | Outpatient (BNVA) | payer OTHER, SELFPAY | PROVIDERS: PCP Internal Medicine; Visit Provider Advanced Practice Midwife | DX: Z30.432 Encounter for removal of intrauterine contraceptive device (principal); N95.2 Postmenopausal atrophic vaginitis; N95.1 Menopausal and female climacteric states; H91.90 Unspecified hearing loss, unspecified ear | CPT/HCPCS: 58301 ==

== ENCOUNTER 2023-09-22 14:37 | Outpatient (REF) | payer OTHER, SELFPAY ==
--- NOTE | ~2023-09-22 | US_ITS ---
EXAMINATION: US PELVIS WITH TRANSVAGINAL CLINICAL INFORMATION: Postmenopausal atrophic vaginitis. COMPARISON: 02/03/2019 CT abdomen and pelvis. TECHNIQUE: Ultrasound of the pelvis is performed using both transabdominal and transvaginal transducers along with Doppler. Transvaginal imaging is performed due to inadequate visualization transabdominally. FINDINGS: The uterus measures 7.0 x 2.7 x 4.0 cm. Imaged segment of endometrium with thickness of 4 mm. A 1.8 x 1.7 x 2.3 cm posterior uterine mass is characteristic of a fibroid. A 0.5 x 0.2 x 0.5 cm hypoechoic lesion in the posterior uterus is characteristic of a small fibroid. A 0.2 x 0.2 x 0.2 cm punctate echogenic focus within the uterus toward the lower uterine segment on the left is characteristic of a calcification. Prominent vasculature in the bilateral adnexa is characteristic of pelvic congestion. Right ovary measures 2.0 x 0.8 x 1.2 cm, volume 1.0 mL and is unremarkable. Left ovary measures 1.9 x 0.6 x 0.6 cm, volume 0.4 mL and is unremarkable. No significant free fluid. US/US pelvic and transvaginal IMPRESSION: 1. Fibroid uterus. 2. Prominent vasculature in the bilateral adnexa is characteristic of pelvic congestion. 3. Endometrial thickness 4 mm.
== END 2023-09-22 14:38 | disposition home or self-care (01) ==
LOC: HO.US 14:37
PROVIDERS: PCP Internal Medicine; Visit Provider Advanced Practice Midwife
DX: R92.8 Other abnormal and inconclusive findings on diagnostic imaging of breast (principal); N95.2 Postmenopausal atrophic vaginitis; N95.1 Menopausal and female climacteric states; Z97.5 Presence of (intrauterine) contraceptive device
CPT/HCPCS: 76830; 76856

== ENCOUNTER 2024-03-06 07:30 | Outpatient (AMB) | payer MEDICARE, OTHER, SELFPAY ==
--- NOTE | 2024-03-06 07:43 | A.OFFVIS_ITS ---
Vital Signs 03/06/24 07:48 BP 110/72 Intake Visit Reasons: Dyspareunia/pt is aware Wildlife Photographer Required: No Flanging Roll Operator: Flanging Roll Operator Present (Lisette) Allergies codeine [CODEINE] Allergy (Intermediate, Verified 03/06/24 07:44) NAUSEA morphine Allergy (Unknown, Verified 03/06/24 07:44) nausea meperidine [Demerol] Adverse Reaction (Unknown, Verified 03/06/24 07:44) nausea,vomt From DEMEROL Adverse Reaction (Intermediate, Uncoded 09/13/23 11:33) NAUSEA Codeine Sulfate Adverse Reaction (Unknown, Uncoded 09/13/23 11:33) nausea,vomiting HPI Comments Details: Patient is here today for a consult for dyspareunia, accompanied by her Fermin. Onset of menopause 4 years ago. She reports dryness and discomfort despite using a lubricant. She is not interested in hormones due to the family history risk of breast cancer. She is currently up-to-date with her breast screenings and goes to [facility] the [facility] has a clinical evaluation and mammogram-MRI every 6 months. [facility] Medical History Abnormal mammogram Basal 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 Bad odor of urine Fatigue Polyarthralgia Anxiety Surgical History History of cataract surgery Status post laminectomy with spinal fusion History of lumbar fusion History of delivery Family History Paternal Aunt Ovarian cancer Paternal Grandmother Breast cancer Maternal Grandmother Breast cancer Social History Housing: House Alcohol intake: never Patient Tobacco Use Status: Never used Tobacco e-Cigarette/Vaping Use: Never Used Second Hand Smoke Exposure: No service: No Current occupational status: unemployed Cognitive needs: No Hearing needs: Yes (hearing aide) Vision needs: Yes (reading glasses) Female Reproductive History Menstrual Age of Menarche: 11 Menopause type: natural Age of menopause: 49 Review of Systems Const All systems reviewed & are unremarkable except as noted in HPI and below Physical Exam Vital Signs: Last Vital Signs BP 110/72 03/06/24 07:48 Const General: cooperative, healthy appearing and no acute distress Orientation/consciousness: patient oriented x3 GI Inspection: Yes normal to inspection Palpation (GI): Soft to palpation and Other GI palpation findings present (Nontender) Rectal Exam - Female: visual inspection normal Other: External dryness with atrophic changes General: Yes bladder normal to palpation External Female Exam: normal appearance of the urethra Speculum Exam - Vagina: normal appearance of the vagina, normal palpation, normal vaginal discharge and vagina atrophic Speculum Exam - Cervix: normal appearance of the cervix and normal palpation Bimanual exam- vagina & uterus: normal bimanual exam, normal palpation, uterine size normal, bladder normal to palpation, normal palpation, uterine shape normal and non-tender Bimanual Exam- Adnexa, other: normal adnexae Neuro General: patient oriented x3 Assessment & Plan Assessment & Plan (1) Vaginal atrophy: Code(s): N95.2 - Postmenopausal atrophic vaginitis (2) Dyspareunia due to medical condition in female: Code(s): N94.19 - Other specified dyspareunia Plan Discussed: Products available for vaginal hydration and lubrication including Replens, Nue Tamika, Bonafide, and others. The role of topical estrogen, pros and cons, risks and benefits. She has opted to try the Replens, reviewed use, where to purchase, and product availability reviewed. All of her questions and concerns were addressed to the best of my ability and shared decision making. She is agreeable to the plan of care. She has her annual exam scheduled for 08/26/2024, if no improvement or other concerns with use, advised 4 months follow-up, unless she has concerns or questions sooner she can the office. Reminder to have [facility] send all MRI and breast imaging for to her primary care for access to records. This note is constructed using voice recognition software. While every effort has been made to ensure accuracy, emt i/85 errors may have been included. Coding Level of Care Code Est Pt Level 3 (80447) Diagnoses Vaginal atrophy N95.2 Dyspareunia due to medical condition in female N94.19
[2024-03-06 07:48] VITALS: BP 110/72
== END 2024-03-06 08:20 | disposition home or self-care (01) ==
PROVIDERS: PCP Internal Medicine; Visit Provider Advanced Practice Midwife
DX: N95.2 Postmenopausal atrophic vaginitis (principal); N94.19 Other specified dyspareunia
CPT/HCPCS: 99213

== ENCOUNTER → 2024-03-06 07:30 | Outpatient (BNVA) | payer MEDICARE, OTHER, SELFPAY | PROVIDERS: PCP Internal Medicine; Visit Provider Advanced Practice Midwife | DX: N95.2 Postmenopausal atrophic vaginitis (principal); N94.19 Other specified dyspareunia | CPT/HCPCS: 99212 ==

== ENCOUNTER 2024-03-23 12:30 | Emergency (ER) | payer MEDICARE, OTHER, SELFPAY ==
--- NOTE | 2024-03-23 | ECG_ITS ---
Test Reason : chest pain Blood Pressure : / mmHG Vent. Rate : 080 BPM Atrial Rate : 080 BPM P-R Int : 124 ms QRS Dur : 076 ms QT Int : 372 ms P-R-T Axes : 052 028 039 degrees QTc Int : 429 ms Sinus rhythm with Premature atrial complexes Otherwise normal ECG When compared with ECG of 03-FEB-2019 18:56, Premature atrial complexes are now Present Referred By: Generic ED Physician Electronically Signed By:ANNALEE NELSON
--- NOTE | ~2024-03-23 | XR_ITS ---
EXAMINATION: XR CHEST CLINICAL INFORMATION: Chest pain COMPARISON: 08/15/2023 TECHNIQUE: 2 views of the chest were obtained. FINDINGS: Lungs are well-inflated and clear. Trachea is midline in position. No interstitial disease, consolidation or mass. No pleural effusion or pneumothorax. Cardiac silhouette and pulmonary vessels are normal in size. The mediastinum and tiffanie have normal contour. Mild spondylosis of the mid and lower thoracic spine. No acute skeletal findings within the thorax. The degenerated lumbar spine is partially included in the [id number]. XR/XR chest 2V IMPRESSION: Lungs have a normal appearance. No acute cardiopulmonary abnormality.
[2024-03-23 12:43] VITALS: BP 145/76; PULSE 85; RESP 18; TEMP 36.6; O2SAT 100; BMI 27.4
[2024-03-23 12:49] LABS: MANUAL DIFF FLAG NO
--- NOTE | 2024-03-23 12:50 | ED_ITS ---
HPI - Chest Pain General Chief Complaint: Chest Pain Stated Complaint: Chest Pains Time Seen by Provider: 03/23/24 12:39 Source: patient and old records reviewed Mode of arrival: ambulatory Limitations: no limitations History of Present Illness ED Provider: LEATHA DELEON narrative: 53 yo female with PMH of GERD, migraines, arthritis here with c/o palpitations and on and off chest pain since Monday not related to exertion she feels her heart race and go high then it will come down. this has happened before but not to this degree and not for this long. no recent increase in caffeine, ETOH, n/v/d. She states it just goes up and down quickly and she feels it is off. No recent travel or procedure, no hx of clots or afib. MD complaint: chest pain (palpitations) Onset (ago): day(s) (Monday) Timing of current episode: episodic Prior episodes: Yes Onset: during rest Pain location: substernal Pain radiation: none Severity: moderate Quality: tightness Relieving factors: nothing Exacerbating factors: nothing Associated symptoms: dyspnea and palpitations Treatment prior to arrival: none Related Data Previous Rx's ?Medication ?Instructions ?Recorded cholecalciferol (vitamin D3) 25 25 mcg PO DAILY #90 tabs 05/17/23 mcg (1,000 unit) tablet meloxicam 15 mg tablet 15 mg PO DAILY #90 tabs 01/27/24 metoprolol succinate 25 mg 12.5 mg (1/2 x 25 mg) PO DAILY #30 03/23/24 tablet,extended release 24 hr tabs (Toprol XL) Allergies Allergy/AdvReac Type Severity Reaction Status Date / Time codeine [CODEINE] Allergy Intermediate NAUSEA Verified 03/23/24 12:49 morphine Allergy Unknown nausea Verified 03/23/24 12:49 meperidine [Demerol] AdvReac Unknown nausea,vomt Verified 03/23/24 12:49 From DEMEROL AdvReac Intermediate NAUSEA Uncoded 09/13/23 11:33 Codeine Sulfate AdvReac Unknown nausea,vomi Uncoded 09/13/23 11:33 ting Review of Systems 2 Review of Systems: Constitutional : No Fever, No Chills, No Fatigue ENT/Mouth : No sore throat, No Rhinorrhea Eyes: No Eye Pain, No Swelling, No Redness Cardiovascular : pos Chest Pain, No SOB, No Dyspnea on Exertion, pos palpitations Respiratory : No Cough, No Sputum Gastrointestinal : No Nausea, No Vomiting, No Diarrhea, No abdominal Pain Genitourinary : No Dysuria, No Urinary Frequency, No Hematuria, Musculoskeletal : No joint pain, No Myalgias, No Joint Swelling Skin : No Skin Lesions, No rash Neuro : No Weakness, No Numbness, No Dizziness, no Headache All other systems reviewed and are negative [facility] Past Medical History Attestation statement: The following information was validated with the patient. Source: old records reviewed Medical History Abnormal mammogram Basal 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 Bad odor of urine Fatigue Polyarthralgia Anxiety Surgical History History of cataract surgery Status post laminectomy with spinal fusion History of lumbar fusion History of delivery Family History Family History Paternal Aunt Ovarian cancer Paternal Grandmother Breast cancer Maternal Grandmother Breast cancer Social History Social History Housing: House Alcohol intake: never Patient Tobacco Use Status: Never used Tobacco e-Cigarette/Vaping Use: Never Used Second Hand Smoke Exposure: No Advance Directives: No Advance Directives Information Provided: No Do you have a plan to hurt others: No Plan service: No Current occupational status: unemployed Cognitive needs: No Hearing needs: Yes (hearing aide) Vision needs: Yes (reading glasses) Physical Exam 2 Vital Signs: Vital Signs: Last Vital Signs Temp 98.5 F 03/23/24 14:00 Pulse 76 03/23/24 14:00 Resp 12 03/23/24 14:00 BP 128/72 03/23/24 14:00 Pulse Ox 97 03/23/24 14:00 O2 Del Method Room Air 03/23/24 14:00 BMI result Body Mass Index 27.4 Appearance: Alert. Oriented X3. No acute distress. Eyes: Pupils equal, round and reactive to light. ENT: Pharynx normal. Neck: Normal inspection. Neck supple. CVS: intermittent irregular heart rate and rhythm. Pulses normal. Respiratory: No respiratory distress. Breath sounds normal. Abdomen: Soft and nontender. Skin: Skin warm and dry. Normal skin color. Normal skin turgor. Extremities: No lower extremity edema. Neuro: Oriented X 3. No motor deficit. No sensory deficit. Course Course Course Narrative: This is a rapid medical exam. Defer additional HPI, ROS, PE to primary provider. 53-year-old female here with complaints of several days of palpitations, chest pain, dizziness with standing, nausea. 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 Medical Decision Making Medical Decision Making [facility] Narrative: 53 yo female with PMH of GERD, migraines, arthritis here with c/o palpitations, atypical chest pain no risk factors for dissection symptoms not related to exertion at this time will obtain labs, TSH, lytes, EKG, ddimer, suspect PACs causing her symptoms in room had frequent PACs BP stable will likely start on Toprol Differential Diagnosis Differential Diagnoses: The differential diagnosis associated with the presentation includes palpitations, PACs, VTE, TSH, lyte abnormality Admission/Observation Consideration of admission/observation: Escalation of care including admission/observation considered work up reassuring at this time DC home on toprol without patient follow up Lab Data [facility] Lab Attestation statement: I reviewed the patient's lab results. 03/23/24 12:45 03/23/24 12:45 Labs: Lab Results 03/23/24 03/23/24 Range/Units 12:45 13:10 WBC 6.7 (4.8-10.8) X10*3/uL RBC 4.19 L (4.20-5.50) X10*6/uL Hgb 13.4 (12.0-16.0) g/dl Hct 39.3 (37.0-47.0) % MCV 93.8 (80.0-98.0) fL MCH 32.0 (27.0-33.0) pg MCHC 34.1 (31.0-35.0) g/dl RDW 12.9 (11.0-16.0) % Plt Count 290 (160-400) X10*3/uL MPV 8.5 L (9.4-12.3) fL Immature Gran % (Auto) 0.3 (0.0-0.4) % Neut % (Auto) 59.3 (45-73) % Lymph % (Auto) 31.8 (20-40) % Lyman % (Auto) 7.3 (2-11) % Eos % (Auto) 0.9 (0-4) % Baso % (Auto) 0.4 (0-2) % Lymph # (Auto) 2.1 (1.2-4.9) X10*3/uL Lyman # (Auto) 0.5 (0.1-1.2) X10*3/uL Eos # (Auto) 0.1 (0.0-0.4) X10*3/uL Baso # (Auto) 0.0 (0.0-0.2) X10*3/uL Abs Immat Gran (auto) 0.02 (0.00-0.03) X10*3/uL Absolute Neuts (auto) 4.0 (2.0-8.3) x10*3/uL Absolute Nucleated RBC 0.000 (0.0-0.012) X10*3/uL Nucleated RBC % (auto) 0.0 (0.0-0.2) /100WBC PT 10.7 L (11.1-13.3) SEC INR 0.9 (0.9-1.1) D-Dimer High Sensitivty < 150 NG/ML Sodium 141 (135-145) mmol/L Potassium 4.0 (3.3-5.1) mmol/L Chloride 106 (96-108) mmol/L Carbon Dioxide 22 (22-29) mmol/L Anion Gap 17 (12-20) BUN 24 H (9-16) mg/dL Creatinine 0.80 (0.5-1.4) mg/dL Estim Creat Clear Calc 78.3 Estimated GFR > 60 Random Glucose 96 (60-115) mg/dL Calcium 10.0 (8.4-10.2) mg/dL Magnesium 2.1 (1.6-2.6) mg/dL Total Bilirubin 0.6 (0.0-1.0) mg/dL Direct Bilirubin 0.2 (0.0-0.5) mg/dL AST 32 H (5-31) U/L ALT 20 (0-31) U/L Alkaline Phosphatase 88 (39-117) U/L Troponin I High Sens < 2.7 (<3.5-17.0) ng/L Total Protein 7.5 (6.5-8.0) g/dL Albumin 4.7 (3.5-5.0) g/dL TSH 2.38 (0.32-4.0) uIU/mL Influenza Type A (PCR) NEGATIVE (Negative) Influenza Type B (PCR) NEGATIVE (Negative) RSV RNA Qual (PCR) NEGATIVE (Negative) SARS-CoV-2 RNA (RT-PCR) NEGATIVE (Negative) Independent Interpretation I performed an independent interpretation of an: EKG and Plain X-Ray Interpretation: Rate: 80 Rhythm: NSR with PACs [place]: normal Normal P waves. Normal MEME. Normal QRS complex. ST T wave : normal no TY qTC: 429 prior studies: no acute ischemia The study has been interpreted contemporaneously by me. . Radiology Impression Discussion of test interpretation with radiology: I have reviewed the radiologist's reading. Independent Historian Clinical information obtained from an independent historian. History obtained from or confirmed by: Parent External Record Review External record reviewed: Outpatient record Prescription Management I considered prescription management with: Other Discharge Plan Discharge Clinical Impression: PAC (premature atrial contraction), Atypical chest pain Patient Disposition: Home, Self-Care Instructions: Chest Pain (ED), Premature Atrial Contractions (ED) Additional Instructions: return for worsening symptoms or concerns hold toprol if HR is less than 60 or systolic blood pressure is less than 90, dizzines or any other concerns follow up with primary care doctor on Monday for holter monitor, outpatient ECHO and outpatient stress test Prescriptions: New metoprolol succinate [Toprol XL] 25 mg tablet extended release 24 hr 12.5 mg PO DAILY Qty: 30 0RF No Action cholecalciferol (vitamin D3) 25 mcg (1,000 unit) tablet 25 mcg PO DAILY Qty: 90 3RF meloxicam 15 mg tablet 15 mg PO DAILY Qty: 90 1RF Print Language: Omani
[2024-03-23 12:55] LABS: Basophils Percent Auto 0.4 % (0-2); Eosinophils Absolute Auto 0.1 X10*3/uL (0.0-0.4); Eosinophils Percent Auto 0.9 % (0-4); Hematocrit 39.3 % (37.0-47.0); Hemoglobin 13.4 g/dl (12.0-16.0); Imm Gran Abs Auto 0.02 X10*3/uL (0.00-0.03); Imm Gran Pct Auto 0.3 % (0.0-0.4); Lymphocytes Absolute Auto 2.1 X10*3/uL (1.2-4.9); Lymphocytes Percent Auto 31.8 % (20-40); Mean Corpuscular HGB Conc 34.1 g/dl (31.0-35.0); Mean Corpuscular Volume 93.8 fL (80.0-98.0); Mean Platelet Volume 8.5 fL (9.4-12.3); Monocytes Absolute Auto 0.5 X10*3/uL (0.1-1.2); Monocytes Percent Auto 7.3 % (2-11); Neutrophils Percent Auto 59.3 % (45-73); Platelet Count 290 X10*3/uL (160-400); Red Blood Count 4.19 X10*6/uL (4.20-5.50); Red Cell Distribution Width 12.9 % (11.0-16.0); White Blood Count 6.7 X10*3/uL (4.8-10.8)
--- NOTE | 2024-03-23 12:58 | MHC.EDTECH ---
This tech placed call to lab to see if they could add on magnesium test to labs previously drawn. Spoke with Margarita. Per Margarita she will add the magnesium test on to current samples.
[2024-03-23 13:03] VITALS: BP 134/83; PULSE 70
[2024-03-23 13:03] LABS: INTERNATIONAL NORM RATIO 0.9 (0.9-1.1); Prothrombin Time 10.7 SEC (11.1-13.3)
[2024-03-23 13:04] VITALS: BP 142/74; PULSE 77
[2024-03-23 13:06] VITALS: BP 148/79; PULSE 81
[2024-03-23 13:07] LABS: Anion Gap 17 (12-20)
[2024-03-23 13:09] LABS: Alanine Aminotransferase 20 U/L (0-31); Albumin Level 4.7 g/dL (3.5-5.0); Alkaline Phosphatase 88 U/L (39-117); Aspartate Amino Transferase 32 U/L (5-31); Bilirubin Direct 0.2 mg/dL (0.0-0.5); Bilirubin Total 0.6 mg/dL (0.0-1.0); Blood Urea Nitrogen 24 mg/dL (9-16); Carbon Dioxide 22 mmol/L (22-29); Chloride 106 mmol/L (96-108); Creatinine Clr Calc Pharmacy 78.3; Estimated Glomerular Filt Rate > 60; Glucose Random 96 mg/dL (60-115); Magnesium 2.1 mg/dL (1.6-2.6); Sodium 141 mmol/L (135-145); Total Protein 7.5 g/dL (6.5-8.0)
[2024-03-23 13:14] LABS: Troponin-I High Sensitivity < 2.7 ng/L (<3.5-17.0)
--- NOTE | 2024-03-23 13:19 | MHC.EDTECH ---
This trevon aske patient if she woul like an electroplating laborer. Patient declined at this time.
[2024-03-23 13:33] LABS: D Dimer High Sensitivity < 150 NG/ML
[2024-03-23 14:00] VITALS: BP 128/72; PULSE 76; RESP 12; TEMP 36.9; O2SAT 97
[2024-03-23 14:00] LABS: Influenza A PCR NEGATIVE (Negative); Influenza B PCR NEGATIVE (Negative); Resp Syncy Virus RNA Qual PCR NEGATIVE (Negative); SARS COV2 PCR INHOUSE NEGATIVE (Negative)
[2024-03-23 14:06] LABS: TSH reflex Free T4 2.38 uIU/mL (0.32-4.0)
[2024-03-23 14:47] VITALS: BP 133/74; PULSE 74; RESP 14; TEMP 36.7; O2SAT 98
== END 2024-03-23 14:55 | disposition home or self-care (01) ==
PROVIDERS: Nurse Practitioner Family; Emergency Provider Emergency Medicine; PCP Internal Medicine
DX: I49.1 Atrial premature depolarization (principal); R07.89 Other chest pain; R00.2 Palpitations; Z03.818 Encounter for observation for suspected exposure to other biological agents ruled out; Z79.899 Other long term (current) drug therapy
CPT/HCPCS: 0241U; 36415; 71046; 80048; 80076; 83735; 84443; 84484; 85025; 85379; 85610; 93005; 99284

== ENCOUNTER 2024-04-15 13:35 | Outpatient (AMB) | payer MEDICARE, OTHER, SELFPAY ==
--- NOTE | 2024-04-15 13:36 | MHC.PC.OV ---
Vital Signs 04/15/24 13:37 Height 5 ft 4 in BMI Reason not done Patient refused/unable BP 128/74 Blood Pressure Location Lt brachial Position Sitting Pulse 77 Pulse Source Pulse Oximeter Pulse Oximetry (%) 96 Oxygen Delivery Method Room Air Intake Visit Reasons: pt discharged from [facility] on 03/23, Heart problems Account Strategist Required: No Accompanied by: Spouse Allergies codeine [CODEINE] Allergy (Intermediate, Verified 04/15/24 13:37) NAUSEA morphine Allergy (Unknown, Verified 04/15/24 13:37) nausea meperidine [Demerol] Adverse Reaction (Unknown, Verified 04/15/24 13:37) nausea,vomt From DEMEROL Adverse Reaction (Intermediate, Uncoded 04/15/24 13:37) NAUSEA Codeine Sulfate Adverse Reaction (Unknown, Uncoded 04/15/24 13:37) nausea,vomiting Tobacco use date assessed: 08/15/23 Dental Screening Dental Screen Date: 04/15/24 Did you have a dental visit in the last 12 months?: Yes Did you have a dental problem in the last 6 months where you did not have access to dental care?: No Was dental information given to patient?: Patient has dentist HPI pt discharged from [facility] on 03/23, Heart problems HPI Details 53-year-old female with GERD, generalized anxiety disorder coming in for follow-up for recent ER visit. Patient's colonoscopy is up-to-date July 2019, mammogram is up-to-date. ER visit in 03/23/2024 for palpitations and chest pain. Patient was started on metoprolol 25 mg once a day. Patient was also seen by the gynecology for dyspareunia and vaginal atrophy. Lubrication recommended discussion about hormones. 03/22. Patient had been very anxious due to Son is in [place]. cardio has called and scheduled for holter and echo- 05/01/2024. [facility] Medical History Abnormal mammogram Basal 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 Bad odor of urine Fatigue Polyarthralgia Anxiety Surgical History History of cataract surgery Status post laminectomy with spinal fusion History of lumbar fusion History of delivery Family History Paternal Aunt Ovarian cancer Paternal Grandmother Breast cancer Maternal Grandmother Breast cancer Social History Housing: House Alcohol intake: never Patient Tobacco Use Status: Never used Tobacco Tobacco use type: Cigarette e-Cigarette/Vaping Use: Never Used Second Hand Smoke Exposure: No service: No Current occupational status: unemployed Cognitive needs: No Hearing needs: Yes (hearing aide) Vision needs: Yes (reading glasses) Female Reproductive History Menstrual Age of Menarche: 11 Questionnaire PHQ-9 Over the last 2 weeks, how often have you been bothered by any of the following problems? 1. Little interest or pleasure in doing things: not at all 2. Feeling down, depressed, or hopeless: not at all 3. Trouble falling or staying asleep, or sleeping too much: not at all 4. Feeling tired or having little energy: not at all 5. Poor appetite or overeating: not at all 6. Feeling bad about yourself - or that you are a failure or have let yourself or your family down: not at all 7. Trouble concentrating on things, such as reading the newspaper or watching television: not at all 8. Moving or speaking so slowly that other people could have noticed. Or the opposite - being so fidgety or restless that you have been moving around a lot more than usual: not at all 9. Thoughts that you would be better off or of hurting yourself in some way: not at all Total score: 0 Depression Screening Interpretation: Negative Depression Screening Done: Yes Source: Developed by Drs. Atul Aguilar, Cyndi Baig, Eze Purvis and colleagues, with an educational alisha from [employer]. Thrive Questionnaire Date Thrive assessed: 04/15/24 I am a: Patient What is your living situation today?: I have a steady place to live Within the past 12 months, did the food you bought not last and you didn't have the money to get more?: Never true Within the past 12 months, did you worry whether your food would run out before you got money to buy more?: Never true Do you have trouble paying for medicines?: No Do you have trouble getting transportation to medical appointments?: No Do you have trouble paying your heating and electricity bill?: No Do you have trouble taking care of your child, family member or friend?: No Do you have trouble with day-to-day activities such as bathing, preparing meals, shopping, managing finances, etc.?: No Are you currently unemployed and looking for a job?: No Are you interested in more education?: No THRIVE Score: 0 AUDIT C Alcohol Use Questionnaire (AUDIT-C) 1. How often do you have a drink containing alcohol?: Never 3. How often do you have six or more drinks on one occasion?: Never Total Score: 0 Score Reviewed/Action Taken: No ZEINA-7 AMB Questionnaire ZEINA-7 Date ZEINA - 7 assessed: 08/15/23 Source: Developed by Drs. Atul Aguilar, Cyndi Baig, Eze Purvis and colleagues, with an educational alisha from [employer]. Physical exam (Primary Care) Vital Signs: Last Vital Signs Pulse 77 04/15/24 13:37 BP 128/74 04/15/24 13:37 Pulse Ox 96 04/15/24 13:37 Oxygen Delivery Method Room Air 04/15/24 13:37 Tobacco/Smoking Status: Tobacco use Status Tobacco use date assessed 08/15/23 04/15/24 13:42 Patient Tobacco Use Status Never used Tobacco 04/15/24 13:42 Tobacco use type Cigarette 04/15/24 13:42 e-Cigarette/Vaping Use Never Used 04/15/24 13:42 PHQ-9: PHQ-9 Score PHQ-9: Total score 0 04/15/24 14:06 Depression Screening Interpretation: Negative Thrive Assessment: Date of Thrive Assessment Date Thrive assessed 04/15/24 04/15/24 13:42 Const General: alert; No acute distress Eyes Conjunctivae: conjunctivae normal Resp Auscultation: clear to auscultation bilaterally Cardio Rate: regular rate Rhythm: regular rhythm GI Inspection: Yes normal to inspection Extrem General: Yes normal to inspection and No edema Assessment and Plan Assessment & Plan (1) Chest pain: Code(s): R07.9 - Chest pain, unspecified Plan: PAtient has a workup pending - cardiology (2) GERD (gastroesophageal reflux disease): Code(s): K21.9 - Gastro-esophageal reflux disease without esophagitis Plan: Avoid the foods that causes that usually spicy foods, tomato products, juices, coffee, soda and foods that your sensitive to. After eating do not lie down, allow 3-4 hours before in lie down. And keep the head of bed above 30 degrees to avoid the acid from going up. (3) ZEINA (generalized anxiety disorder): Code(s): F41.1 - Generalized anxiety disorder Plan: Will start on med for anxeity (4) SOB (shortness of breath): Code(s): R06.02 - Shortness of breath Plan: will request for PFT Orders: Orders PFT pulmonary function test Today R06.02 - Shortness of breath Free T4 (Free Thyroxine) Today R00.2 - Palpitations Thyroid Stimulating Hormone Today R00.2 - Palpitations Lipid Panel Today E78.00 - Pure hypercholesterolemia, unspecified, R00.2 - Palpitations Vitamin B12 and Folate Today R00.2 - Palpitations Referrals Psychiatry Outpatient Consultation Service F41.1 - Generalized anxiety disorder Cardiology Referral R07.9 - Chest pain, unspecified Medications: New escitalopram oxalate (Lexapro) 5 mg PO DAILY 30 tabs 5RF F41.1 - Generalized anxiety disorder Coding Level of Care Code Est Pt Level 4 (31849) Diagnoses Chest pain R07.9 GERD (gastroesophageal reflux disease) K21.9 ZEINA (generalized anxiety disorder) F41.1 SOB (shortness of breath) R06.02 Additional Codes PHQ-9 - 96617 - PHQ-9 Billing: ([id number])
[2024-04-15 13:37] VITALS: BP 128/74; PULSE 77; O2SAT 96
== END 2024-04-15 14:35 | disposition home or self-care (01) ==
PROVIDERS: PCP Internal Medicine; Visit Provider Internal Medicine
DX: R07.9 Chest pain, unspecified (principal); K21.9 Gastro-esophageal reflux disease without esophagitis; F41.1 Generalized anxiety disorder; R06.02 Shortness of breath
CPT/HCPCS: 99214

== ENCOUNTER 2024-04-27 07:14 | Outpatient (REF) | payer MEDICARE, MEDICAID, OTHER, SELFPAY ==
[2024-04-27 08:22] LABS: Cholesterol 157 mg/dL (<200); HDL Cholesterol 67 mg/dL (>40); LDL Cholesterol Calculated 81 mg/dL (<100); Triglycerides 47 mg/dL (<150)
[2024-04-27 08:38] LABS: Free T4 (Free Thyroxine) 0.94 ng/dL (0.71-1.85)
[2024-04-27 08:44] LABS: Folate 8.1 ng/mL (> or = 4.0); Vitamin B12 368 pg/mL (200-900)
== END 2024-04-27 07:15 | disposition home or self-care (01) ==
LOC: HO.LAB 07:14
PROVIDERS: PCP Internal Medicine; Visit Provider Internal Medicine
DX: R00.2 Palpitations (principal); E78.00 Pure hypercholesterolemia, unspecified
CPT/HCPCS: 36415; 80061; 82607; 82746; 84439; 84443

== ENCOUNTER → 2024-05-01 09:49 | Outpatient (REF) | payer MEDICARE, OTHER, SELFPAY ==
--- NOTE | 2024-05-01 09:53 | CA_ITS ---
Transthoracic Echocardiogram Patient (Last, First, Middle): Sharonda Florence E Gender: Female Date of : 1970 Age: 53 Procedure Date: 05/01/2024 Procedure Type: Transthoracic Echocardiogram Location: OP Height: 162.56 cm Weight: 70.31 kg BSA: 1.76 m2 Heart Rate: 69 bpm BP: 120 / 60 mmHg First Sampler: RACQUEL Referring MD: Daniel Cali MD Symptoms: I49.1 - Atrial premature depolarization Study Quality: Adequate ECG Rhythm: Sinus Conclusions: - The left ventricular systolic function is low normal. The visually estimated ejection fraction is between 50-55%. - No obvious valvular pathology seen on this study. Findings Left Ventricle Normal left ventricular cavity size. There is normal left ventricular wall thickness. The left ventricular systolic function is low normal. The visually estimated ejection fraction is between 50-55%. There is no evidence of regional wall motion abnormalities. Diastolic function is normal for age. Right Ventricle Mildly increased right ventricular cavity size. There is normal right ventricular systolic function. Atria The left atrium is normal in size. The right atrium is mildly dilated. Aortic Valve There is a normal trileaflet aortic valve. There is mild calcification of the aortic valve. There is no aortic valve stenosis. There is no aortic valve regurgitation. Mitral Valve The mitral valve appears normal. There is trace mitral valve regurgitation. There is no mitral valve stenosis. Pulmonic Valve There is trace pulmonic valve regurgitation. Tricuspid Valve Normal tricuspid valve structure. There is trace tricuspid valve regurgitation. There is no evidence of pulmonary hypertension. Great Vessels The asc aorta and aortic arch are normal in size. Venous The inferior vena cava is normal in size and collapses greater than 50% with inspiration. Pericardium/Pleural There is no evidence of pericardial effusion. Prior Study Comparison No significant change compared to prior study dated: 07/08/2016. Recommendations, Care & Conclusions No obvious valvular pathology seen on this study. Measurements 2D Linear Measurements IVSd: 0.66 0.6-0.9/0.6-1.0 cm LVIDd: 5.57 3.9-5.3/4.2-5.9 cm LVIDd Index: 3.16 2.4-3.2/2.2-3.1 cm/m2 LVIDs: 3.66 2.0-3.6 cm LVPWd: 0.57 0.7-1.1 cm LA Diam: 3.40 2.7-3.8/3.0-4.0 cm LAIDs Index: 1.93 1.5-2.3 cm/m2 LV Mass: 147.58 67-162/88-224 g LV Mass Index: 83.85 43-95/49-115 g/m2 LVOT Diam: 2.00 3.0+(-)1.3 cm 2D Systolic Function EF 4C: 52.40 >55% EF 2C: 59.20 >55% EF BiP: 54.70 >55% Mitral Valve MV Pk E: 0.69 MV PK A: 0.47 MV Decel Time: 174.00 E/A: 1.50 E'Lateral: 11.40 E'Medial: 6.09 E/E' Med: 11.30 E/E' Lat: 6.10 PHT: 51.00 MVA PHT: 4.31 Decel Williams: 3.97 Aortic Valve AoV Pk Aiden: 1.05 AoV Pk Grad: 4.00 EM: 3.20 LVOT LVOT Pk Aiden: 1.02 LVOT Mn Aiden: 0.72 LVOT VTI: 0.22 LVOT Pk Grad: 4.00 LVOT Mn Grad: 2.00 LVOT Diam: 2.00 LVOT Area: 3.14 Diastolic Function MV Pk E: 0.69 MV Pk A: 0.47 E/A: 1.50 E'Medial: 6.09 E/E' Med: 11.30 E' Laterial: 11.40 E/E' Lat: 6.10 Right Ventricle TAPSE (mm): 20.30 TVS' Aiden: 11.50 Tricuspid Valve TR Pk Aiden: 1.69 TR Pk Grad: 11.00 RA Press: 3.00 RVSP: 14.00 Great Vessels Aorta Sinus of Valsalva: 3.00 2.0-3.5 cm Ao Asc: 3.40 2.1-3.4 cm Ao Arch: 2.70 Pulmonary Veins Pulm Vein S/D 1.10 Pulmonary Valve PV Pk Aiden: 0.76 Peak PV Grad: 2.00 Updated in Other Vendor System with Status of Final Andres Pratt MD electronically signed on 05/03/2024 12:54:10 PM with status of Final
--- NOTE | 2024-05-01 09:53 | HM_ITS ---
* Total monitoring time 2 days. * Underlying rhythm is sinus with an average rate of 75/Min. * Frequent supraventricular ectopy. * Rare ventricular ectopy. One run of 4 beats. * No significant pauses or AV blocks. * No patient markers or diary events. MTDD
== END ==
LOC: HO.CARD 09:49
PROVIDERS: PCP Internal Medicine; Visit Provider Internal Medicine Cardiovascular Disease
DX: R07.89 Other chest pain (principal); I49.1 Atrial premature depolarization
CPT/HCPCS: 93225; 93306

== ENCOUNTER → 2024-05-01 09:53 | Outpatient (BNV) | payer MEDICARE, OTHER, SELFPAY | PROVIDERS: PCP Internal Medicine; Visit Provider Internal Medicine | DX: I47.10 Supraventricular tachycardia, unspecified (principal) | CPT/HCPCS: 93227; 93306 ==

== ENCOUNTER 2024-05-09 15:52 | Outpatient (REF) | payer OTHER, MEDICARE, SELFPAY ==
[2024-05-09 13:19] VITALS: PULSE 75; RESP 16; O2SAT 98
== END 2024-05-09 15:53 | disposition home or self-care (01) ==
LOC: HO.RESP 15:52
PROVIDERS: PCP Internal Medicine; Visit Provider Internal Medicine
DX: R06.02 Shortness of breath (principal)
CPT/HCPCS: 94010; 94640; 94727; 94729

== ENCOUNTER 2024-05-13 12:22 | Outpatient (AMB) | payer MEDICARE, OTHER, SELFPAY ==
--- NOTE | 2024-05-13 12:31 | A.OFFVIS_ITS ---
Vital Signs 05/13/24 12:32 Height 5 ft 4 in Weight 176 lb 5.917 oz BMI 30.3 BP 120/80 Blood Pressure Location Lt brachial Position Sitting Pulse 71 Intake Visit Reasons: follow up Intake Note: New patient was in the ED with palpitations had holter and echo feeling better after starting lexapro Highway Engineer Required: No Strand Buncher Fine Wire: Strand Buncher Fine Wire Present Accompanied by: Father Allergies codeine [CODEINE] Allergy (Intermediate, Verified 04/15/24 13:37) NAUSEA morphine Allergy (Unknown, Verified 04/15/24 13:37) nausea meperidine [Demerol] Adverse Reaction (Unknown, Verified 04/15/24 13:37) nausea,vomt From DEMEROL Adverse Reaction (Intermediate, Uncoded 04/15/24 13:37) NAUSEA Codeine Sulfate Adverse Reaction (Unknown, Uncoded 04/15/24 13:37) nausea,vomiting Medication List - Last Reconciled 05/13/24 by Daniel Cali MD cholecalciferol (vitamin D3) 25 mcg PO DAILY escitalopram oxalate (Lexapro) 5 mg PO DAILY meloxicam 15 mg PO DAILY HPI Comments Details: Thank you for referring Sharonda in cardiology consultation today for recent onset symptoms of palpitations. She had recent lot of personal stress related to her son's deployment to middle-aged for active duty. In March she presented emergency room because of symptoms of palpitation because she was getting really stressed out and anxious and she was having lot of fluttering in her chest, lasted for 2 days and did not subside. She came to the Emergency was noted to have PACs. Initial blood work was benign. She was subsequently sent home and given metoprolol but she felt that metoprolol lower blood pressure too much and she stopped taking it. Subsequently saw you in the office and at that time due to her symptoms of shortness of breath and palpitation she had workup performed through your office including echo and Holter monitor. Echo shows predominantly normal structure of the heart. Holter shows frequent PACs. Since then she was started on Lexapro therapy and has done extremely well. Her symptoms of fluttering in his chest and shortness of breath have improved significantly. She denies any other symptoms. No prolonged irregular heartbeat or palpitations. No lightheadedness, syncope. No exertional chest pain. [facility] Medical History Abnormal mammogram Basal 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 Bad odor of urine Fatigue Polyarthralgia Anxiety Surgical History History of cataract surgery Status post laminectomy with spinal fusion History of lumbar fusion History of delivery Family History Paternal Aunt Ovarian cancer Paternal Grandmother Breast cancer Maternal Grandmother Breast cancer Social History Housing: House Alcohol intake: never Patient Tobacco Use Status: Never used Tobacco Tobacco use type: Cigarette e-Cigarette/Vaping Use: Never Used Second Hand Smoke Exposure: No service: No Current occupational status: unemployed Cognitive needs: No Hearing needs: Yes (hearing aide) Vision needs: Yes (reading glasses) Female Reproductive History Menstrual Age of Menarche: 11 Review of Systems Const Denies chills, Denies daytime sleepiness, Denies fatigue, Denies fever(s), Denies frequent falls, Denies poor appetite, Denies snoring, Denies stops breathing during sleep, Denies weakness, Denies weight gain and Denies weight loss Eyes Denies loss of vision ENT Denies dizziness and Denies hearing loss Card Denies chest pain, Denies claudication, Denies leg edema, Denies lightheadedness, Denies palpitations, Denies dyspnea, Denies dyspnea on exertion and Denies orthopnea Resp Denies cough, Denies excessive phlegm production, Denies dyspnea, Denies dyspnea on exertion, Denies snoring and Denies wheezing GI Denies abdominal pain, Denies hematochezia, Denies change in bowel habits, Denies nausea and Denies vomiting Denies urinary frequency and Denies dysuria Musc Denies arthralgias, Denies muscle weakness, Denies numbness and Denies other (frequent falls) Skin/Breast Denies nail changes and Denies rash Neuro Denies Abnormal speech present, Denies dizziness, Denies frequent falls, Denies loss of vision, Denies memory loss, Denies numbness and Denies weakness Psych Denies depression and Denies memory loss Endo Denies fatigue and Denies palpitations Jatinder/Lymph Reports easy bruising and Reports other (anemia) Aller/Immun Denies wheezing Physical Exam Vital Signs: Last Vital Signs Pulse 71 05/13/24 12:32 BP 120/80 05/13/24 12:32 BMI result Body Mass Index 30.3 Const General: cooperative, comfortable, no acute distress, alert, awake, Physically active and well groomed Nutritional Appearance: overweight Orientation/consciousness: patient oriented x3 Limitations: no limitations HEENT Head: Yes normocephalic and Yes atraumatic Neck Neck: Yes trachea midline, Yes supple and Yes no JVD Resp Effort & Inspection: normal respiratory effort Auscultation: clear to auscultation bilaterally Cardio Jugular venous distension: no JVD Palpation: normal PMI Rate: regular rate Rhythm: regular rhythm Heart sounds: S1 normal heart sound present, S2 normal heart sound present, no click, no gallops, no murmurs and no rubs GI Auscultation: normal bowel sounds Skin General skin exam: no rashes or lesions noted Neuro General: patient oriented x3 and no focal motor deficits Speech: No Abnormal speech present Extrem General: Yes no clubbing, cyanosis or edema Office Procedures EKG Details: EKG shows NSR with normal EKG [id number], Complete Assessment & Plan Assessment & Plan (1) PAC (premature atrial contraction): Code(s): I49.1 - Atrial premature depolarization Category: Medical Plan: New onset palpitation with correlation with premature atrial contraction. She had frequent PACs on Holter monitor but since then was started on treatment with Lexapro and overall anxiety status and stress has improved significantly on symptoms as a result have improved significantly. She did not have significantly low blood pressure response to metoprolol if her symptoms recur, this can be tried for improvement in his symptoms. This was discussed with her. Pathophysiology of PACs were discussed. She was normal structure of the heart by echocardiogram. At this point time I have advised her to participate in more behavioral modification strategies such as meditation/yoga/Richie chi. Benign nature of PACs was discussed with her. If she has further progressive symptoms she is advised to call my office. Avoidance of stimulants such as caffeine alcohol was discussed. Will follow up in the clinic in 6 months time, sooner p.r.n.. Thank you for allowing me to partake in his care Coding Level of Care Code New Pt Level 3 (46433) Diagnoses PAC (premature atrial contraction) I49.1 CPT Codes EKG - CPT: 66337-[id number], Complete ([id number])
[2024-05-13 12:32] VITALS: BP 120/80; PULSE 71; BMI 30.3
== END 2024-05-13 13:21 | disposition home or self-care (01) ==
PROVIDERS: PCP Internal Medicine; Visit Provider Internal Medicine Cardiovascular Disease
DX: I49.1 Atrial premature depolarization (principal)
CPT/HCPCS: 93010; 99203

== ENCOUNTER → 2024-05-13 12:22 | Outpatient (BNVA) | payer MEDICARE, OTHER, SELFPAY | PROVIDERS: PCP Internal Medicine; Visit Provider Internal Medicine Cardiovascular Disease | DX: I49.1 Atrial premature depolarization (principal) | CPT/HCPCS: 93005; 99202 ==

== ENCOUNTER 2024-06-28 15:34 | Outpatient (AMB) | payer MEDICARE, OTHER, SELFPAY ==
[2024-06-28 15:38] VITALS: BP 132/80; BMI 30.8
--- NOTE | 2024-06-28 15:38 | A.OFFVIS_ITS ---
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 She had been trying Replens moisturizer for 5-6 weeks and did not feel like it was making any difference. History of abnormal mammogram. [facility] Medical History Abnormal mammogram Basal 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 Bad odor of urine Fatigue Polyarthralgia Anxiety Surgical History History of cataract surgery Status post laminectomy with spinal fusion History of lumbar fusion History of delivery Family History Paternal Aunt Ovarian cancer Paternal Grandmother Breast cancer Maternal Grandmother Breast cancer Social History Housing: House Alcohol intake: never Patient Tobacco Use Status: Never used Tobacco Tobacco use type: Cigarette e-Cigarette/Vaping Use: Never Used Second Hand Smoke Exposure: No service: No Current occupational status: unemployed Cognitive needs: No Hearing needs: Yes (hearing aide) Vision needs: Yes (reading glasses) Female Reproductive History Menstrual Age of Menarche: 11 Review of Systems Const All systems reviewed & are unremarkable except as noted in HPI and below Endo Reports no additional complaints Physical Exam Vital Signs: Last Vital Signs BP 132/80 06/28/24 15:38 BMI result Body Mass Index 30.8 Const General: cooperative, healthy appearing and no acute distress Psych Appearance: well kempt Attitude: cooperative Thought process: Normal thought process present Assessment & Plan Assessment & Plan (1) Vaginal atrophy: Code(s): N95.2 - Postmenopausal atrophic vaginitis Plan Discussed: Use of Replens you may not see benefits until at least 12 weeks of use, encouraged her to restart it and try it for up to 3 months she can also use a vaginal lubricant-multiple brands shared with her today, additionally if needing for any dryness or moisturization. She has a follow up annual exam in August of 2024 we can discuss her progress at that visit. Not recommend HR due to concerns for breast cancer. All of her questions and concerns were addressed to the best of my ability and shared decision making. She is agreeable to the plan of care. This note is constructed using voice recognition software. While every effort has been made to ensure accuracy, tucking machine operator errors may have been included. Medications: New medroxyprogesterone (Provera) 10 mg PO ONCE 30 days 30 tabs 0RF Coding Level of Care Code Est Pt Level 2 (23665) Diagnoses Vaginal atrophy N95.2
== END 2024-06-28 16:15 | disposition home or self-care (01) ==
LOC: HO.HWS 15:34
PROVIDERS: PCP Internal Medicine; Visit Provider Advanced Practice Midwife
DX: N95.2 Postmenopausal atrophic vaginitis (principal)
CPT/HCPCS: 99212

== ENCOUNTER → 2024-06-28 15:34 | Outpatient (BNVA) | payer MEDICARE, OTHER, SELFPAY | PROVIDERS: PCP Internal Medicine; Visit Provider Advanced Practice Midwife | DX: N95.2 Postmenopausal atrophic vaginitis (principal) | CPT/HCPCS: 99212 ==

== ENCOUNTER 2024-10-17 15:29 | Outpatient (AMB) | payer MEDICARE, OTHER, SELFPAY ==
[2024-10-17 15:44] VITALS: BP 120/74; PULSE 68; O2SAT 97; BMI 27.5
--- NOTE | 2024-10-17 15:44 | A.OFFPC_ITS ---
Vital Signs 10/17/24 15:44 Height 5 ft 4 in Weight 160 lb BMI 27.5 BP 120/74 Blood Pressure Location Lt brachial Position Sitting Pulse 68 Pulse Source Pulse Oximeter Pulse Oximetry (%) 97 Oxygen Delivery Method Room Air Intake Visit Reasons: 3 mth f/u Neonatal Intensive Care Unit Nurse Required: No Accompanied by: Self / Same As Patient Allergies codeine [CODEINE] Allergy (Intermediate, Verified 10/17/24 15:45) NAUSEA morphine Allergy (Unknown, Verified 10/17/24 15:45) nausea meperidine [Demerol] Adverse Reaction (Unknown, Verified 10/17/24 15:45) nausea,vomt From DEMEROL Adverse Reaction (Intermediate, Uncoded 10/17/24 15:45) NAUSEA Codeine Sulfate Adverse Reaction (Unknown, Uncoded 10/17/24 15:45) nausea,vomiting Medication List - Last Reconciled 10/17/24 by Henrik Skelton MD cholecalciferol (vitamin D3) 25 mcg PO DAILY escitalopram oxalate 10 mg PO DAILY 90 days meloxicam 15 mg PO DAILY tirzepatide (weight loss) (Zepbound) 2.5 mg (0.5 mL) subcut QWEEK Tobacco use date assessed: 10/17/24 Dental Screening Dental Screen Date: 10/17/24 Did you have a dental visit in the last 12 months?: Yes Did you have a dental problem in the last 6 months where you did not have access to dental care?: No Was dental information given to patient?: Patient has dentist HPI 3 mth f/u HPI Details had injection on the lumbar spine recently but did not work [facility], [facility] Medical History Abnormal mammogram Basal 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 Bad odor of urine Fatigue Polyarthralgia Anxiety Surgical History History of cataract surgery Status post laminectomy with spinal fusion History of lumbar fusion History of delivery Family History Paternal Aunt Ovarian cancer Paternal Grandmother Breast cancer Maternal Grandmother Breast cancer Social History Housing: House Alcohol intake: never Patient Tobacco Use Status: Never used Tobacco Tobacco use type: Cigarette e-Cigarette/Vaping Use: Never Used Second Hand Smoke Exposure: No service: No Current occupational status: unemployed Cognitive needs: No Hearing needs: Yes (hearing aide) Vision needs: Yes (reading glasses) Female Reproductive History Menstrual Age of Menarche: 11 Questionnaire PHQ-9 Over the last 2 weeks, how often have you been bothered by any of the following problems? 1. Little interest or pleasure in doing things: not at all 2. Feeling down, depressed, or hopeless: not at all 3. Trouble falling or staying asleep, or sleeping too much: not at all 4. Feeling tired or having little energy: not at all 5. Poor appetite or overeating: not at all 6. Feeling bad about yourself - or that you are a failure or have let yourself or your family down: not at all 7. Trouble concentrating on things, such as reading the newspaper or watching television: not at all 8. Moving or speaking so slowly that other people could have noticed. Or the opposite - being so fidgety or restless that you have been moving around a lot more than usual: not at all 9. Thoughts that you would be better off or of hurting yourself in some way: not at all Total score: 0 Depression Screening Interpretation: Negative Depression Screening Done: Yes Source: Developed by Drs. Atul Aguilar, Cyndi Baig, Eze Purvis and colleagues, with an educational alisha from [employer]. Thrive Questionnaire Date Thrive assessed: 10/17/24 I am a: Patient What is your living situation today?: I have a steady place to live Within the past 12 months, did the food you bought not last and you didn't have the money to get more?: Never true Within the past 12 months, did you worry whether your food would run out before you got money to buy more?: Never true Do you have trouble paying for medicines?: No Do you have trouble getting transportation to medical appointments?: No Do you have trouble paying your heating and electricity bill?: No Do you have trouble taking care of your child, family member or friend?: No Do you have trouble with day-to-day activities such as bathing, preparing meals, shopping, managing finances, etc.?: No Are you currently unemployed and looking for a job?: No Are you interested in more education?: No Please select the resources that you would like help with: None Currently or been in a relationship where the following occur: No concerns reported THRIVE Score: 0 AUDIT C Alcohol Use Questionnaire (AUDIT-C) 1. How often do you have a drink containing alcohol?: Never 3. How often do you have six or more drinks on one occasion?: Never Total Score: 0 Score Reviewed/Action Taken: No ZEINA-7 AMB Questionnaire ZEINA-7 Date ZEINA - 7 assessed: 10/17/24 Feeling nervous, anxious, or on edge: 0 = Not at all Not being able to stop or control worryin = Not at all Worrying too much about different things: 0 = Not at all Trouble relaxin = Not at all Being so restless that it is hard to sit still: 0 = Not at all Becoming easily annoyed or irritable: 0 = Not at all Feeling afraid as if something awful might happen: 0 = Not at all Total ZEINA-7 score (0-4 normal; 5-9 mild; 10-14 moderate; 15-21 severe): 0 Source: Developed by Drs. Atul Aguilar, Cyndi Baig, Eze Purvis and colleagues, with an educational alisha from [employer]. Physical exam (Primary Care) Vital Signs: Last Vital Signs Pulse 68 10/17/24 15:44 BP 120/74 10/17/24 15:44 Pulse Ox 97 10/17/24 15:44 Oxygen Delivery Method Room Air 10/17/24 15:44 BMI result Body Mass Index 27.5 Tobacco/Smoking Status: Tobacco use Status Tobacco use date assessed 10/17/24 10/17/24 15:55 Patient Tobacco Use Status Never used Tobacco 10/17/24 15:46 Tobacco use type Cigarette 10/17/24 15:46 e-Cigarette/Vaping Use Never Used 10/17/24 15:46 PHQ-9: PHQ-9 Score PHQ-9: Total score 0 10/17/24 15:55 Depression Screening Interpretation: Negative Thrive Assessment: Date of Thrive Assessment Date Thrive assessed 10/17/24 10/17/24 15:55 Currently or been in a relationship where the following occur: No concerns reported Const General: alert; No acute distress Eyes Conjunctivae: conjunctivae normal Resp Auscultation: clear to auscultation bilaterally Cardio Rate: regular rate Rhythm: regular rhythm GI Inspection: Yes normal to inspection Extrem General: Yes normal to inspection and No edema Coding Level of Care Code Est Pt Level 4 (13553) Diagnoses GERD (gastroesophageal reflux disease) K21.9 Migraine G43.909 Generalized anxiety disorder F41.1 SOB (shortness of breath) R06.02 Palpitations R00.2 Overweight (BMI 25.0-29.9) E66.3 Assessment & Plan Assessment & Plan (1) GERD (gastroesophageal reflux disease): Code(s): K21.9 - Gastro-esophageal reflux disease without esophagitis Category: Medical Plan: Avoid the foods that causes that usually spicy foods, tomato products, juices, coffee, soda and foods that your sensitive to. After eating do not lie down, allow 3-4 hours before in lie down. And keep the head of bed above 30 degrees to avoid the acid from going up. (2) Migraine: Code(s): G43.909 - Migraine, unspecified, not intractable, without status migrainosus Category: Medical (3) Generalized anxiety disorder: Code(s): F41.1 - Generalized anxiety disorder Category: Medical Plan: Continue with Lexapro 10 mg once a day (4) SOB (shortness of breath): Code(s): R06.02 - Shortness of breath Category: Medical Plan: PFTs normal (5) Palpitations: Code(s): R00.2 - Palpitations Category: Medical Plan: Patient has met could Cardiology and was given reassurance (6) Overweight (BMI 25.0-29.9): Code(s): E66.3 - Overweight Category: Medical Plan: discussed about the meds fro loosing weight Plan History of Present Illness The patient is a 53-year-old female presenting for follow-up of multiple chronic conditions. She has a significant history of hearing deficit, GERD, and migraine. Following recent chest pain episodes, there was a referral to cardiology, where palpitations were noted after starting Lexapro. An initial drop in blood pressure was observed following metoprolol administration for anxiety, which has since been resolved. Currently, she reports improvement without active counseling, feeling stable under pharmacotherapy. Weight management is a concern, having experienced weight loss and seeking to maintain it with medication; however, she acknowledges availability and insurance issues. She supplements with vitamin D due to decreased sun exposure attributed to a history of skin cancer. Diagnostic results for recent blood work were normal, negating any underlying metabolic or renal disorders. Health Maintenance - Blood work shows normal results, cholesterol levels satisfactory. - Pulmonary function test: normal. - Last colon screening was in 2018. - Bone density screening conducted in 2019. - Mammogram performed in July 2023. - Ophthalmology consultation in April 2024. - Discussion about enhancing vitamin D intake through supplementation during colder months due to limited sun exposure. Social History - Reports engaging in regular walking activities with her dogs as a form of exercise. - Expressed dietary concerns and struggles with weight management and appetite control. - Supplements vitamin D, especially in winter months, due to history of skin cancer and limited sun exposure. Review of Systems - Cardiovascular: Reports palpitations. - Musculoskeletal: Reports back pain. - Neurological: Denies problems with urination; no recent symptom of anxiety was reported given improved management with Lexapro. Physical Exam Results - Labs: Normal blood results; cholesterol within normal limits; electrolytes stable; no anemia; renal and liver function normal. - Pulmonary Function Test: Normal results. Plan I recommend continuation of Lexapro for managing anxiety, noting positive response with behavioral modifications suggested ongoing. GERD remains manageable; continue current therapeutic regimen while enhancing dietary attention. Blood pressure monitoring advised while managing with lifestyle alterations. Weight maintenance should focus on sustained activity levels and potential pharmacotherapy, subject to insurance confirmation. Further assessment of back pain remains necessary, and an MRI will proceed once confirmed. Patient was informed and verbally consented to the use of an ambient scribe for clinic note documentation during this visit. Discussion Notes I discussed the effectiveness of Lexapro for anxiety with the patient, highlighting improved symptoms sustained by behavioral modifications. Reassurance was provided regarding GERD management through lifestyle and pharmacological measures. We addressed the challenges encountered with obtaining weight loss medications due to insurance constraints and their potentially high cost. I highlighted the importance of regular physical activity to support ongoing health and encouraged flu vaccinations given seasonal risks. The need for further diagnostic imaging like an MRI was emphasized to better evaluate her back pain, especially given past injection failures. Patient Instructions - Continue taking Lexapro as prescribed for anxiety management. - Maintain dietary modifications to manage GERD symptoms. - Monitor and record blood pressure regularly. - Engage in regular exercise and dog walking to support weight loss and maintenance. - Supplement with vitamin D as needed, especially during colder months when sun exposure is limited. - Proceed with obtaining an MRI for back pain evaluation once approved. - Consider getting a flu vaccine to prevent seasonal illness. - Stay hydrated and eat healthily to support overall wellness. Medications: New tirzepatide (weight loss) (Zepbound) for 4 weeks 2.5 mg (0.5 mL) subcut QWEEK 2 mL 0RF E66.3 - Overweight
--- OUTSIDE RECORDS SUMMARY | 2024-10-17 19:03 | XMS_ITS | Patient Health Record ---
[facility] Address [address] [place] [address] Care Team Providers Care Waste Water Operator Name Role Phone Henrik Skelton Primary Care Provider Katelynn Cardoza Unavailable [phone] Allergies Allergen (clinical drug ingredient) Drug/Non Drug Allergy documented on EMR Reaction Allergy Type Onset Date Status meperidine Demerol bausea/vomiting Drug Allergy Active acetaminophen / oxycodone Percocet nausea/vomiting Drug Allergy Active codeine Codeine nausea/vomiting Drug Allergy A ctive morphine Morphine nausea/vomiting Drug Allergy A ctive Reason For Referral No Information Medications Medication SIG (Take, Route, Frequency, Duration) Notes Start Date End Date Status Ciclopirox 0.77 % APPLY 1 APPLICATION EXTERNALLY TWICE A DAY for 30 Active Meloxicam 15 MG Oral for 90 Ac tive Omeprazole 20 MG TAKE 1 CAPSULE BY [facility] DAILY Oral for 90 Active Vitamin D3 25 MCG (1000 UT) Oral for 90 Active Sertraline HCl 25 MG Oral for 90 Active Azithromycin 250 MG TAKE 2 TABLETS BY [facility] TODAY, THEN TAKE 1 TABLET DAILY FOR 4 DAYS DIRECTED Oral for 5 Active Social History Tobacco Use: Social History Observation Description Date Details (start date - stop date) Former Smoker NA - NA Tobacco Use/Smoking Question Answer Notes Are you a: former smoker Additional Findings: Tobacco Non-User Current no n-smoker Alcohol Screen Question Answer Notes Did you have a drink containing alcohol in the p ast year? No Points 0 Interpretation Negative Encounters Encounter Location Date Provider [facility] [address] [place] [address] 12/01/2023 Katelynn Thurman Plan Of Treatment Pending Test Test Name Order Date X ray : Foot, left 3V 09/12/2023 X ray : Foot, right 3V 09/12/2023 Insurance Providers Payer Name Payer Address Payer Phone Subscriber Number Group Number Insured Name Patient Relationship to Insured Coverage Start Date Coverage End Date [facility] [address] [place] [address] [id number] Fermin Perdomo Spouse - patient is the spouse of the insured [address] [facility] [employer] Claims [address] [place] [id number] Sharonda Florence Self - patient is the insured Medical (General) History Medical History History ICD Code Arthritis Back,Hip,and Knee pain Cataracts Chicken pox covid-19 Joint implants/screws Surgical History Surgery Date(Month/Year) breast biopsy low lumbar fusion 1997 cesearean section 1992 cataracts OU 2011 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
--- OUTSIDE RECORDS SUMMARY | 2024-10-17 19:03 | XMS_ITS ---
Author Organization [facility] Address [address] [place] [address] Care Team Providers Care Still Operator Helper Name Role Phone Henrik Skelton Primary Care Provider Katelynn Cardoza [phone] REASON FOR VISIT Cancel Encounters Encounter Location Date Provider Diagnosis [facility] [address] [place] [address] 12/01/2023 Katelynn Thurman Plan Of Treatment No Information Progress Notes * Sharonda FLORENCE EDOB:1970 (52 yo F)Acc No.[id number]:12/01/2023 Patient:?Sharonda Florence :1970???Age:52 Y???Sex:Female Address:[place] [address] * true * Date:? Generated for Printi ng/Faxing/eTransmitting on:?10/17/2024 07:03 PM EDT
--- OUTSIDE RECORDS SUMMARY | 2024-10-17 19:04 | XMS_ITS ---
Author Organization [facility] Address [address] [place] [address] Care Team Providers Care Wafer Polishing Worker Name Role Phone Henrik Skelton Primary Care Provider Katelynn Cardoza [phone] REASON FOR VISIT RX: Ciclopirox (0.77 % Gel) Encounters Encounter Location Date Provider Diagnosis [facility] [address] [place] [address] 09/13/2023 Katelynn Thurman Plan Of Treatment No Information Progress Notes * Sharonda FLORENCE EDOB:1970 (52 yo F)Acc No.[id number]:09/13/2023 Patient:?Sharonda Florence :1970???Age:52 Y???Sex:Female Address[address] [place] [address] * true * Date:? Generated for Printi ng/Fagertrudisg/eTransmitting on:?10/17/2024 07:03 PM EDT
--- OUTSIDE RECORDS SUMMARY | 2024-10-17 19:04 | XMS_ITS ---
Author Organization [facility] Address [address] [place] [address] Care Team Providers Care Stereotyper Helper Name Role Phone Henrik Skelton Primary Care Provider Katelynn Cardoza [phone] Encounters Encounter Location Date Provider Diagnosis [facility] [address] [place] [address] 12/05/2023 Katelynn Thurman Plan Of Treatment No Information Progress Notes * Sharonda FLORENCE EDOB:1970 (53 yo F)Acc No.[id number]:12/05/2023 Progress Note Patient:?Sharonda FLORENCE Provider:?Katelynn Thurman DPM :1970???Age:52 Y???Sex:Female D ate:12/05/2023 Address[address] [facility] Pcp:Henrik Skelton Subjective: * Chief Complaints: * ??? * Medical History:? Objective: * Vitals:? Assessment: Plan: * Treatment: * Images: * The named appointment provid er may or may not be the originator of this progress note, and it is not deemed complete until electronically signed by the appointment provider. Sign off status: Pending * Provider:?Katelynn Thurman DPM Date:? Generated for Printi ng/Fagertrudisg/eTransmitting on:?10/17/2024 07:03 PM EDT
== END 2024-10-17 16:43 | disposition home or self-care (01) ==
LOC: HO.HMCH 15:30
PROVIDERS: PCP Internal Medicine; Visit Provider Internal Medicine
DX: K21.9 Gastro-esophageal reflux disease without esophagitis (principal); G43.909 Migraine, unspecified, not intractable, without status migrainosus; F41.1 Generalized anxiety disorder; R06.02 Shortness of breath; R00.2 Palpitations; E66.3 Overweight; Z23 Encounter for immunization

== ENCOUNTER → 2024-10-17 15:29 | Outpatient (BNVA) | payer MEDICARE, OTHER, SELFPAY | PROVIDERS: PCP Internal Medicine; Visit Provider Internal Medicine | DX: Z23 Encounter for immunization (principal); K21.9 Gastro-esophageal reflux disease without esophagitis; G43.909 Migraine, unspecified, not intractable, without status migrainosus; F41.1 Generalized anxiety disorder; R06.02 Shortness of breath; R00.2 Palpitations; E66.3 Overweight; Z68.27 Body mass index [BMI] 27.0-27.9, adult; Z71.3 Dietary counseling and surveillance | CPT/HCPCS: 90471; 90656; 99212 ==

== ENCOUNTER 2024-12-12 07:58 | Outpatient (AMB) | payer MEDICARE, OTHER, SELFPAY ==
--- NOTE | 2024-12-12 08:00 | A.OFFVIS_ITS ---
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 She is doing well with direct marketing executive concerns: sexually active, admits to vaginal dryness and painful intimacy despite using Replens regularly. Attempting to eat a healthy diet with calcium and vitamin D and stays active with exercise. Last pap smear; 2023. Last mammogram; No current reports available, has MRI and mammogram q 6mo. Family history of breast cancer. 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 Bad odor of urine Fatigue Polyarthralgia Anxiety Surgical History History of cataract surgery Status post laminectomy with spinal fusion History of lumbar fusion History of delivery Family History Paternal Aunt Ovarian cancer Paternal Grandmother Breast cancer Maternal Grandmother Breast cancer Mother Breast cancer Maternal Aunt Breast cancer Social History Housing: House Alcohol intake: never Patient Tobacco Use Status: Never used Tobacco Tobacco use type: Cigarette e-Cigarette/Vaping Use: Never Used Second Hand Smoke Exposure: No service: No Current occupational status: unemployed Cognitive needs: No Hearing needs: Yes (hearing aide) Vision needs: Yes (reading glasses) Female Reproductive History Menstrual Age of Menarche: 11 Total pregnancies: 1 Full term: 1 Number of Living Children: 1 Date of last pap smear: 08/09/23 (neg pap and hpv) History of abnormal pap smear: Yes (2002 ascus) Date of Mammogram: 08/16/23 (Birad 1) Review of Systems Const All systems reviewed & are unremarkable except as noted in HPI and below Reports as per HPI Eyes Reports no additional complaints ENT Reports no additional complaints Card Reports no additional complaints Resp Reports no additional complaints GI Reports as per HPI and Reports no additional complaints Reports as per HPI Musc Reports no additional complaints Skin/Breast Reports as per HPI Neuro Reports no additional complaints Psych Reports no additional complaints Endo Reports no additional complaints Jatinder/Lymph Reports no additional complaints Aller/Immun Reports no additional complaints Physical Exam Vital Signs: Last Vital Signs BP 114/70 12/12/24 08:02 Const General: cooperative, healthy appearing, no acute distress, well developed and alert Orientation/consciousness: patient oriented x3 HEENT Head: Yes normal to inspection Eyes General: appearance normal, both eyes and all related structures Neck Neck: Yes normal visual inspection Thyroid: Thyroid normal Chest Chest palpation & inspection: normal inspection of the chest and other (no puckering, dimpling, peau de orange, retraction, discharge, masses) Breast/axilla inspection: normal inspection of the breasts Breast/axilla palpation: normal palpation of the breasts Resp Effort & Inspection: normal respiratory effort GI Inspection: Yes normal to inspection and Yes scar Palpation (GI): Soft to palpation Rectal Exam - Female: deferred General: Yes bladder normal to palpation External Female Exam: normal external appearance and normal appearance of the urethra Speculum Exam - Vagina: normal appearance of the vagina, normal palpation, normal vaginal discharge and vagina atrophic Speculum Exam - Cervix: normal appearance of the cervix and normal palpation Bimanual exam- vagina & uterus: normal bimanual exam, normal palpation, uterine size normal, bladder normal to palpation, normal palpation and non-tender Bimanual Exam- Adnexa, other: no masses Skin General skin exam: no rashes or lesions noted Rashes: no rashes Neuro General: patient oriented x3 Cognition (Neuro): normal cognition Extrem General: Yes normal to inspection Psych Attitude: cooperative Thought process: Normal thought process present Assessment & Plan Assessment & Plan (1) Atrophic vaginitis: Code(s): N95.2 - Postmenopausal atrophic vaginitis Category: Medical Plan: Discussed: Concerns regarding high-risk breast cancer screening and concerns with previous abnormal findings of her breast in the use of hormone therapy. Continue with Replens. Referral to [facility] breast cancer center for consultation regarding vaginal atrophy treatment options. The patient expressed understanding and agreement with the plan of care. All of her questions and concerns were addressed to the best of my ability. (2) At high risk for breast cancer: Code(s): Z91.89 - Other specified personal risk factors, not elsewhere classified Category: Medical (3) Dyspareunia, female: Code(s): N94.10 - Unspecified dyspareunia Category: Medical Plan: See above notes. (4) Vaginal atrophy: Code(s): N95.2 - Postmenopausal atrophic vaginitis Category: Medical Plan: As noted above. Referral placed to [facility] specialist for consult. Plan Discussed: Current recommendations for pap smears per ASCCP guidelines. Breast awareness, periodic self breast exams and yearly mammogram. Maintain a healthy lifestyle, well balanced diet including Calcium 1,200 mg and Vitamin D 600 IU daily, and routine exercise. Contact the office with any postmenopausal bleeding. Patient verbalizes understanding and agrees to the plan of care. She was given opportunity to ask questions and all questions were answered to the best of my ability. RTO in 1 year for annual direct marketing executive exam. This note is constructed using voice recognition software. While every effort has been made to ensure accuracy, numerical control nesting operator errors may have been included. Orders: Referrals EMAIL MARKETING ASSISTANT Referral N94.10 - Unspecified dyspareunia, N95.2 - Postmenopausal atrophic vaginitis, Z91.89 - Other specified personal risk factors, not elsewhere classified Coding Level of Care Code Est Pt Prev Care 40-64y(85526) Diagnoses Atrophic vaginitis N95.2 At high risk for breast cancer Z91.89 Dyspareunia, female N94.10 Vaginal atrophy N95.2
--- OUTSIDE RECORDS SUMMARY | 2024-12-12 08:00 | XMS_ITS ---
Author Organization [facility] Address [address] [place] [address] Care Team Providers Care Candy Rolling Machine Operator Name Role Phone Henrik Skelton Primary Care Provider Katelynn Cardoza [phone] REASON FOR VISIT RX: Ciclopirox (0.77 % Gel) Encounters Encounter Location Date Provider Diagnosis [facility] [address] [place] [address] 09/13/2023 Katelynn Thurman Plan Of Treatment No Information Progress Notes * Sharonda FLORENCE EDOB:1970 (52 yo F)Acc No.[id number]:09/13/2023 Patient:?Sharonda Florence :1970???Age:52 Y???Sex:Female Address:[address] [place] [address] * true * Date:? Generated for Printi ng/Fagertrudisg/eTransmitting on:?12/12/2024 08:00 AM EDT
--- OUTSIDE RECORDS SUMMARY | 2024-12-12 08:00 | XMS_ITS ---
Author Organization [facility] Address [address] [place] [address] Care Team Providers Care Mva Reactor Operator Name Role Phone Henrik Skelotn Primary Care Provider Katelynn Cardoza [phone] REASON FOR VISIT Cancel Encounters Encounter Location Date Provider Diagnosis [facility] [address] [place] [address] 12/01/2023 Katelynn Thurman Plan Of Treatment No Information Progress Notes * Sharonda FLORENCE EDOB:1970 (52 yo F)Acc No.[id number]:12/01/2023 Patient:?Sharonda Florence :1970???Age:52 Y???Sex:Female Address:[place] [address] * true * Date:? Generated for Printi ng/Faxing/eTransmitting on:?12/12/2024 07:59 AM EDT
--- OUTSIDE RECORDS SUMMARY | 2024-12-12 08:00 | XMS_ITS ---
Author Organization [facility] Address [address] [place] [address] Care Team Providers Care Heel Top Lift Splitter Name Role Phone Henrik Skelton Primary Care Provider Katelynn Cardoza [phone] Encounters Encounter Location Date Provider Diagnosis [facility] [address] [place] [address] 12/05/2023 Katelynn Thurman Plan Of Treatment No Information Progress Notes * Sharonda FLORENCE EDOB:1970 (54 yo F)Acc No.[id number]:12/05/2023 Progress Note Patient:?Sharonda FLORENCE Provider:?Katelynn Thurman DPM :1970???Age:52 Y???Sex:Female D ate:12/05/2023 Address:[address] [place], [place] Pcp:Henrik Skelton Subjective: * Chief Complaints: * ??? * Medical History:? Objective: * Vitals:? Assessment: Plan: * Treatment: * Images: * The named appointment provid er may or may not be the originator of this progress note, and it is not deemed complete until electronically signed by the appointment provider. Sign off status: Pending * Provider:?Katelynn Thurman DPM Date:? Generated for Printi ng/Fagertrudisg/eTransmitting on:?12/12/2024 08:00 AM EDT
--- OUTSIDE RECORDS SUMMARY | 2024-12-12 08:00 | XMS_ITS | Patient Health Record ---
Author Organization [facility] Address [address] [place] [address] Care Team Providers Care Ob Tech Name Role Phone Henrik Skelton Primary Care Provider Katelynn Cardoza Unavailable [phone] Allergies Allergen (clinical drug ingredient) Drug/Non Drug [...] Omeprazole 20 MG TAKE 1 CAPSULE BY [facility] DAILY Oral for 90 Active Vitamin D3 25 MCG (1000 UT) Oral for 90 Active Sertraline HCl 25 MG Oral for 90 Active Azithromycin 250 MG TAKE 2 TABLETS BY [facility] TODAY, THEN TAKE 1 TABLET DAILY FOR [...] ast year? No Points 0 Interpretation Negative Plan Of Treatment Pending Test Test Name Order Date X ray : Foot, left 3V 09/12/2023 X ray : Foot, right 3V 09/12/2023 Insurance Providers Payer Name Payer Address Payer Phone Subscriber Number Group Number Insured Name Patient Relationship to Insured Coverage Start Date Coverage End Date [facility] [address] [place] [address] [id number] Fermin Perdomo Spouse - patient is the spouse of the insured [facility] [employer] [address] [place] [id number] [phone] [id number] Sharonda Florence Self - patient is the insured Medical (General) History Medical History History ICD Code Arthritis Back,Hip,and Knee pain Cataracts Chicken pox covid-19 Joint implants/screws Surgical History Surgery Date(Month/Year) breast biopsy low lumbar fusion 1998 cesearean section 1992 cataracts OU 2011 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
[2024-12-12 08:02] VITALS: BP 114/70
== END 2024-12-12 08:51 | disposition home or self-care (01) ==
LOC: HO.HWSW 07:58
PROVIDERS: PCP Internal Medicine; Visit Provider Advanced Practice Midwife
DX: Z01.419 Encounter for gynecological examination (general) (routine) without abnormal findings (principal); N95.2 Postmenopausal atrophic vaginitis; N94.10 Unspecified dyspareunia; Z91.89 Other specified personal risk factors, not elsewhere classified
CPT/HCPCS: 99396; 99459

== ENCOUNTER → 2024-12-12 07:58 | Outpatient (BNVA) | payer MEDICARE, OTHER, SELFPAY | PROVIDERS: PCP Internal Medicine; Visit Provider Advanced Practice Midwife | DX: Z01.419 Encounter for gynecological examination (general) (routine) without abnormal findings (principal); N95.2 Postmenopausal atrophic vaginitis; N94.10 Unspecified dyspareunia; Z91.89 Other specified personal risk factors, not elsewhere classified | CPT/HCPCS: 99396; 99459 ==

== ENCOUNTER 2025-06-26 07:59 | Emergency (ER) | payer MEDICARE, OTHER, SELFPAY ==
--- NOTE | ~2025-06-26 | XR_ITS ---
EXAMINATION: XR ELBOW, LEFT CLINICAL INFORMATION: pain COMPARISON: X-ray 05/09/2022 TECHNIQUE: AP, lateral, and oblique views of the left elbow. FINDINGS: No visible acute fracture, dislocation or suspicious bony lesion. Alignment is anatomic. No significant joint space narrowing. No erosions. No abnormal soft tissue calcification. No significant effusion is seen. XR/XR elbow LT min 3V IMPRESSION: No radiographic evidence of acute osseous findings Electronically signed by: Jason Sanders MD 06/26/2025 10:40 AM ABRAM
--- NOTE | ~2025-06-26 | XR_ITS ---
EXAMINATION: XR SHOULDER, LEFT CLINICAL INFORMATION: pain COMPARISON: None available. TECHNIQUE: Three views of the left shoulder. FINDINGS: No visible acute fracture, dislocation.. Mild superior positioning of the humeral head with respect to glenoid. Glenohumeral and acromioclavicular joint spaces are maintained. 7 mm sclerotic focus in the proximal humeral diaphysis. No abnormal soft tissue calcification. XR/XR shoulder LT min 2V IMPRESSION: *No acute osseous findings. *Mild superior positioning of the humeral head with respect to glenoid, could reflect mild nonspecific subluxation, sequela of rotator cuff pathology. Clinically correlate. MRI evaluation as clinically indicated. *Nonspecific 7 mm sclerotic focus in the proximal humeral diaphysis. Differential consideration include bone island, other etiologies. Correlate prior imaging. Further evaluation with bone scan or MRI as clinically indicated. Alternately, recommend short-term follow-up radiograph for reassessment. Electronically signed by: Jason Sanders MD 06/26/2025 10:37 AM ABRAM SEN
--- NOTE | ~2025-06-26 | XR_ITS ---
EXAMINATION: XR CHEST 2 VIEWS HISTORY: CP, left shoulder pain COMPARISON: Comparison is made with the prior examination dated 03/23/2024. FINDINGS: PA and lateral views of the chest are submitted. The lungs are expanded and clear. There is no pleural effusion, pneumothorax, or pulmonary vascular congestion. The heart is normal in size. The bones are intact. XR/XR chest 2V IMPRESSION: No acute cardiopulmonary abnormality. Electronically signed by: Atul Rivera MD 06/26/2025 10:31 AM ABRAM
[2025-06-26 08:01] VITALS: BP 126/73; PULSE 82; RESP 18; TEMP 37; O2SAT 98; BMI 24.7
--- NOTE | 2025-06-26 08:24 | PC.NURSE ---
Patient presents to ED with right shoulder pain. +CSM in right arm. A&Ox4, denies CP, SOB. XRay ordered.
--- NOTE | 2025-06-26 08:29 | ED.EXTPRO ---
HPI - Extremity Problem General Chief complaint: Extremity Injury, Upper Stated complaint: General Medical Time Seen by Provider: 06/26/25 08:15 Source: patient, family and RN notes reviewed Mode of arrival: ambulatory Limitations: no limitations History of Present Illness ED Provider: Wanda Tran PA-C HPI Narrative: This is a 54-year-old female, with a past medical history of GERD, osteoarthritis, who presents emergency department with concerns of atraumatic left shoulder pain. patient reports that over the last 2-3 weeks she has had episodes of left shoulder pain that starts in her left shoulder and radiates down into her left elbow. She states that the pain would come and go however states that over the last 2 days has been constant. She states that she has had difficulty moving the left shoulder secondary to pain. Denies history of similar symptoms in the past. She has been taking Tylenol for her pain which has provided her with minimal relief. She otherwise denies any fevers, chills, chest pain, shortness of breath, abdominal pain, nausea, vomiting or diarrhea. She denies any recent travel, surgery, or hospitalizations. No other complaints or concerns at this time. MD Complaint: extremity pain and joint pain Onset (ago): day(s) Pain Consistency: constant Location: left and upper extremity Quality: aching Radiation: distal Relieving factors: immobilization and rest Exacerbating factors: range of motion and palpation Associated symptoms: denies other symptoms Related Data Previous Rx's ?Medication ?Instructions ?Recorded cholecalciferol (vitamin D3) 25 25 mcg PO DAILY #90 tabs 07/19/24 mcg (1,000 unit) tablet tirzepatide (weight loss) 2.5 2.5 mg (0.5 mL) subcut QWEEK #2 mL 10/17/24 mg/0.5 mL subcutaneous pen injector (Zepbound) escitalopram oxalate 10 mg tablet 10 mg PO DAILY 90 days #90 tabs 06/08/25 meloxicam 15 mg tablet 15 mg PO DAILY #90 tabs 06/08/25 acetaminophen 500 mg tablet 1,000 mg (2 x 500 mg) PO TID PRN 06/26/25 (Tylenol Extra Strength) pain #30 tabs morphine 15 mg immediate release 15 mg PO Q6H PRN severe pain 06/26/25 tablet (scale score 7-10) #7 tabs ondansetron 4 mg disintegrating 4 mg PO Q6H PRN nausea and 06/26/25 tablet vomiting #10 tabs Allergies Allergy/AdvReac Type Severity Reaction Status Date / Time codeine (CODEINE) Allergy Intermediate NAUSEA Verified 06/26/25 08:04 morphine Allergy Unknown nausea Verified 06/26/25 08:04 meperidine (Demerol) AdvReac Unknown nausea,vomt Verified 06/26/25 08:04 From DEMEROL AdvReac Intermediate NAUSEA Uncoded 10/17/24 15:45 Codeine Sulfate AdvReac Unknown nausea,vomi Uncoded 10/17/24 15:45 ting Review of Systems Review of Systems: Constitutional : No Fever, No Chills ENT/Mouth : No sore throat, No Rhinorrhea Eyes: No Eye Pain, No Swelling, No Redness Cardiovascular : No Chest Pain, No SOB Respiratory : No Cough, No Sputum Gastrointestinal : No Nausea, No Vomiting, No Diarrhea, No abdominal Pain Genitourinary : No Dysuria, No Hematuria Musculoskeletal : + joint pain, No Myalgias, No Joint Swelling Skin : No Skin Lesions Neuro : No Weakness, No Numbness, No Headache All other systems reviewed and are negative Yes all other systems are reviewed and are negative Constitutional: Constitutional: Reports as per [facility] Past Medical History Medical History Vaginal atrophy Dyspareunia, female At high risk for breast cancer Abnormal mammogram Basal 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 Bad odor of urine Fatigue Polyarthralgia Anxiety Surgical History History of cataract surgery Status post laminectomy with spinal fusion History of lumbar fusion History of delivery Family History Family History Paternal Aunt Ovarian cancer Paternal Grandmother Breast cancer Maternal Grandmother Breast cancer Mother Breast cancer Maternal Aunt Breast cancer Social History Social History Housing: House Alcohol intake: never Patient Tobacco Use Status: Never used Tobacco Tobacco use type: Cigarette e-Cigarette/Vaping Use: Never Used Second Hand Smoke Exposure: No service: No Current occupational status: unemployed Cognitive needs: No Hearing needs: Yes (hearing aide) Vision needs: Yes (reading glasses) Physical Exam Vital Signs: Vital Signs: Last Vital Signs Temp 97.8 F 06/26/25 16:25 Pulse 70 06/26/25 16:25 Resp 18 06/26/25 16:25 BP 142/77 H 06/26/25 16:25 Pulse Ox 97 06/26/25 16:25 O2 Del Method Room Air 06/26/25 16:25 BMI result Body Mass Index 24.7 Const: General: cooperative, comfortable and no acute distress Orientation/consciousness: patient oriented x3 Limitations: no limitations HEENT: Head: Yes normal to inspection, Yes normocephalic and Yes atraumatic Ears: hearing grossly normal bilaterally General nose exam: Normal external nose present Face and sinus: Yes normal facial exam Mouth: Normal oral and palatal mucosa present, oropharynx normal and moist mucous membranes Throat: Yes posterior oropharynx normal Eyes: General: appearance normal, both eyes and all related structures Eyelids: Yes eyelids normal Conjunctivae: conjunctivae normal Sclerae: sclerae normal Pupils: Equal, round and reactive pupils present EOM: EOMs intact bilaterally Neck: Neck: Yes normal visual inspection, Yes full ROM and Yes no lymphadenopathy Lymphatic: no lymphadenopathy noted Chest: Chest palpation & inspection: normal inspection of the chest Resp: Effort & Inspection: normal respiratory effort and able to speak in complete sentences Auscultation: clear to auscultation bilaterally, no crackles, no rales, no rhonchi and no wheezes Cardio: Rate: regular rate Rhythm: regular rhythm Heart sounds: S1 normal heart sound present and S2 normal heart sound present GI: Inspection: Yes normal to inspection Skin: General skin exam: no rashes or lesions noted Trauma: no lacerations or abrasions Wounds: no wounds Neuro: General: patient oriented x3 and moves all extremities Cranial nerves: Yes Equal, round and reactive pupils present Extrem: Other: Left shoulder with no obvious bony deformity or swelling. She has tenderness palpation diffusely throughout the shoulder, extremely limited range of motion secondary to pain and discomfort. She also has diffuse tenderness throughout the bicep, and into the medial and lateral electrolytes. Strong radial pulse. Capillary refill less than 2 seconds. Sensation intact. General: Yes normal to inspection Right upper extremity: normal to inspection Left upper extremity: normal to inspection Right lower extremity: normal to inspection Left lower extremity: normal to inspection Medications Administered Discontinued Medications Generic Name Dose Route Start Last Admin Trade Name Christie PRN Reason Stop Dose Admin Acetaminophen 975 mg 06/26/25 08:41 06/26/25 08:56 Acetaminophen 325 Mg Tablet PO 06/26/25 08:42 975 mg ONCE ONE Administration Ketorolac Tromethamine 20 mg 06/26/25 12:08 06/26/25 12:13 Ketorolac Tromethamine 15 Mg/Ml Vial IM 06/26/25 12:09 20 mg ONCE ONE Administration Morphine Sulfate 15 mg 06/26/25 13:32 06/26/25 13:46 Morphine Sulfate Immed Release 15 Mg Tablet PO 06/26/25 13:33 15 mg ONCE ONE Administration Ondansetron HCl 4 mg 06/26/25 13:32 06/26/25 13:46 Ondansetron Odt 4 Mg Tab.Rapdis TRANSLINGU 06/26/25 13:33 4 mg ONCE ONE Administration Medical Decision Making Medical Decision Making [facility] Narrative: This is a 54-year-old female, with a past medical history of GERD, osteoarthritis, who presents emergency department accompanied by her with concerns of atraumatic left shoulder pain. On arrival, vital signs within normal limits. She is speaking full sentences, appears to be under no acute distress. She is holding her left upper extremity secondary to pain. she has tenderness palpation diffusely throughout the left shoulder as well as the left elbow. Differential diagnoses include adhesive capsulitis, osteoarthritis. also considering fracture, sprain, strain however patient reports no recent injury. Also considering atypical ACS. Given left arm pain, with no clear etiology, will obtain cardiac workup to rule out atypical ACS. She reports that she has adverse reactions to strong pain medications therefore will defer pain medication until workup has been completed. Will also medicate with Tylenol in the meantime. She took meloxicam this morning. Plan: labs, EKG, chest x-ray, left elbow, left shoulder x-ray 11:50 AM 06/26/2025 (Wanda Tran PA-C): labs returned, she has no leukocytosis, stable H&H, chemistry with no significant electrolyte derangement. Troponin less than 2.7, ESR and CRP within normal limits. Chest x-ray unremarkable. Shoulder x-ray shows mild superior positioning of the humeral head with respect to glenoid, could reflect mild nonspecific subluxation, sequela of rotator cuff pathology. Also a nonspecific 7 mm sclerotic focus in the proximal humeral diaphysis. Recommending bone scan or MRI as clinically indicated. Elbow x-ray unremarkable. I discussed with my attending physician, will medicate with Toradol. She took meloxicam this morning, 1 time dose of Toradol 20 mg administered 1:33 PM 06/26/2025 (Wanda Tran PA-C): patient re-evaluated, pain has not improve. Will trial Zofran with morphine to see if her symptoms improve. Patient feeling much better after receiving morphine and Zofran. Her overall workup is reassuring. Her x-ray does show evidence of possible rotator cuff pathology. I discussed this with patient. She was given a shoulder immobilizer. Stressed the importance of taking her shoulder out of the immobilizer multiple times per day. Given orthopedic referral. She understands and agrees with this plan. Given strict return precautions. Patient stable for discharge. Differential Diagnosis Differential Diagnoses: The differential diagnosis associated with the presentation includes see above Lab Data [facility] Lab Attestation statement: I reviewed the patient's lab results. See [facility] 06/26/25 09:13 06/26/25 09:13 Labs: Lab Results 06/26/25 Range/Units 09:13 WBC 5.2 (4.8-10.8) X10*3/uL RBC 3.95 L (4.20-5.50) X10*6/uL Hgb 12.3 (12.0-16.0) g/dl Hct 36.5 L (37.0-47.0) % MCV 92.4 (80.0-98.0) fL MCH 31.1 (27.0-33.0) pg MCHC 33.7 (31.0-35.0) g/dl RDW 12.4 (11.0-16.0) % Plt Count 251 (160-400) X10*3/uL MPV 8.6 L (9.4-12.3) fL Immature Gran % (Auto) 0.2 (0.0-0.4) % Neut % (Auto) 59.1 (45-73) % Lymph % (Auto) 29.9 (20-40) % Divide % (Auto) 9.0 (2-11) % Eos % (Auto) 1.0 (0-4) % Baso % (Auto) 0.8 (0-2) % Lymph # (Auto) 1.6 (1.2-4.9) X10*3/uL Divide # (Auto) 0.5 (0.1-1.2) X10*3/uL Eos # (Auto) 0.1 (0.0-0.4) X10*3/uL Baso # (Auto) 0.0 (0.0-0.2) X10*3/uL Abs Immat Gran (auto) 0.01 (0.00-0.03) X10*3/uL Absolute Neuts (auto) 3.1 (2.0-8.3) x10*3/uL Absolute Nucleated RBC 0.000 (0.0-0.012) X10*3/uL Nucleated RBC % (auto) 0.0 (0.0-0.2) /100WBC ESR 16 (0-20) MM/HR Sodium 142 (135-145) mmol/L Potassium 4.1 (3.3-5.1) mmol/L Chloride 106 (96-108) mmol/L Carbon Dioxide 28 (22-29) mmol/L Anion Gap 12 (12-20) BUN 26 H (9-16) mg/dL Creatinine 0.89 (0.5-1.4) mg/dL Estim Creat Clear Calc 61.6 Estimated GFR > 60 Random Glucose 83 (60-115) mg/dL Calcium 9.4 (8.4-10.2) mg/dL Magnesium 2.2 (1.6-2.6) mg/dL Total Bilirubin 0.6 (0.0-1.0) mg/dL Direct Bilirubin 0.2 (0.0-0.5) mg/dL AST 27 (5-31) U/L ALT 12 (0-31) U/L Alkaline Phosphatase 69 (39-117) U/L Troponin I High Sens < 2.7 (<3.5-17.0) ng/L C-Reactive Protein 0.15 (< or = 0.50) mg/dL Total Protein 7.3 (6.5-8.0) g/dL Albumin 5.0 (3.5-5.0) g/dL Radiology Impression Discussion of test interpretation with radiology: I have reviewed the radiologist's reading. Radiologist Impression: FINDINGS: No visible acute fracture, dislocation or suspicious bony lesion. Alignment is anatomic. No significant joint space narrowing. No erosions. No abnormal soft tissue calcification. No significant effusion is seen. XR/XR elbow LT min 3V IMPRESSION: No radiographic evidence of acute osseous findings Electronically signed by: Jason Sanders MD 06/26/2025 10:40 AM EST RP Dictated By: Jason Sanders MD XR/XR shoulder LT min 2V IMPRESSION: *No acute osseous findings. *Mild superior positioning of the humeral head with respect to glenoid, could reflect mild nonspecific subluxation, sequela of rotator cuff pathology. Clinically correlate. MRI evaluation as clinically indicated. *Nonspecific 7 mm sclerotic focus in the proximal humeral diaphysis. Differential consideration include bone island, other etiologies. Correlate prior imaging. Further evaluation with bone scan or MRI as clinically indicated. Alternately, recommend short-term follow-up radiograph for reassessment. Electronically signed by: Jason Sanders MD 06/26/2025 10:37 AM EST RP Dictated By: Jason Sanders MD Discharge Plan Discharge Clinical Impression: Left shoulder pain Patient Disposition: Home, Self-Care Instructions: Shoulder Pain (ED) Additional Instructions: You were seen in the emergency department due to left shoulder pain. We performed labs, your labs were reassuring. We performed an EKG, as well as measured cardiac enzymes, this rules out any cardiac problems causing you to have the symptoms. Your chest x-ray and elbow x-ray were normal. Your shoulder x-ray shows possible rotator cuff etiology. Your x-ray also shows a nonspecific 7mm sclerotic focus in your proximal humeral diaphysis. It is hard to know what exactly this is therefore an MRIs important to obtained. Please call the health insurance specialist tomorrow for follow-up. I am giving you a sling for comfort purposes only. It is very important that you do not remain in the sling 247. Please remove multiple times per day and perform [id number] exercises. Take Tylenol as prescribed. Take morphine as needed for severe pain, please be advised that this can cause drowsiness, do not drink alcohol or drive while taking this medication. [place] this for severe pain only. Zofran is also a medication that can help with nausea, take this when you take the morphine. Follow-up with your primary care physician. Prescriptions: New morphine 15 mg tablet 15 mg PO Q6H PRN (Reason: severe pain (scale score 7-10)) Qty: 7 0RF Rx Instructions: Partial Fill upon patient request. ondansetron 4 mg tablet,disintegrating 4 mg PO Q6H PRN (Reason: nausea and vomiting) Qty: 10 0RF acetaminophen [Tylenol Extra Strength] 500 mg tablet 1,000 mg PO TID PRN (Reason: pain) Qty: 30 0RF No Action cholecalciferol (vitamin D3) 25 mcg (1,000 unit) tablet 25 mcg PO DAILY Qty: 90 3RF escitalopram oxalate 10 mg tablet 10 mg PO DAILY 90 Days Qty: 90 1RF meloxicam 15 mg tablet 15 mg PO DAILY Qty: 90 1RF Zepbound 2.5 mg/0.5 mL pen injector 2.5 mg subcut QWEEK Qty: 2 0RF Rx Instructions: for 4 weeks Referrals: [facility] [place]Provider Group] Discharge Date/Time: 06/26/25 16:33 Print Language: Uzbek
--- NOTE | 2025-06-26 08:42 | ECG_ITS ---
Test Reason : CP Blood Pressure : */* mmHG Vent. Rate : 69 BPM Atrial Rate : 69 BPM P-R Int : 134 ms QRS Dur : 78 ms QT Int : 400 ms P-R-T Axes : 45 37 39 degrees QTcB Int : 428 ms Normal sinus rhythm Normal ECG When compared with ECG of 23-Mar-2024 12:29, Premature atrial complexes are no longer Present Referred By: Wanda Tran Electronically Signed By: DIMA SWENSON
--- OUTSIDE RECORDS SUMMARY | 2025-06-26 09:02 | XMS_ITS | Patient Health Record ---
Author Organization [facility] Address [address] [place] [address] Care Team Providers Care Telecasting Technician Name Role Phone Henrik Skelton Primary Care Provider Katelynn Cardoza Unavailable [phone] Allergies Allergen (clinical drug ingredient) Drug/Non Drug [...] % APPLY 1 APPLICATION EXTERNALLY TWICE A DAY; Duration: 30 Active Meloxicam 15 MG Oral; Duration: 90 Active Omeprazole 20 MG TAKE 1 CAPSULE BY MO UT DAILY Oral; Duration: 90 Active Vitamin D3 25 MCG (1000 UT) Oral; Duration: 90 Active Sertraline HCl 25 MG Oral; Duration: 90 Active Azithromycin 250 MG TAKE 2 TABLETS BY MO UTH TODAY, THEN TAKE 1 TABLET DAILY FOR 4 DAYS DIRECTED Oral; Duration: 5 Active Social History Tobacco Use: Social [...] Insured Coverage Start Date Coverage End Date [facility] [address] [place] [address] [id number] Fermin ePrdomo Spouse - patient is the spouse of the insured 4 [facility] [employer] Claims [address] [place] [id number] Sharonda [place] Self - patient is the insured Medical (General) History Medical History History ICD Code Arthritis Back,Hip,and Knee pain Cataracts Chicken pox covid-19 Joint implants/screws Surgical History Surgery Date(Month/Year) breast biopsy low lumbar fusion 1998 cesearean section 1992 cataracts OU 2011 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
[2025-06-26 09:18] LABS: Hematocrit 36.5 % (37.0-47.0); Hemoglobin 12.3 g/dl (12.0-16.0); Imm Gran Abs Auto 0.01 X10*3/uL (0.00-0.03); Imm Gran Pct Auto 0.2 % (0.0-0.4); Lymphocytes Absolute Auto 1.6 X10*3/uL (1.2-4.9); MANUAL DIFF FLAG NO; Mean Corpuscular HGB Conc 33.7 g/dl (31.0-35.0); Mean Corpuscular Hemoglobin 31.1 pg (27.0-33.0); Mean Corpuscular Volume 92.4 fL (80.0-98.0); NRBC Abs Auto 0.000 X10*3/uL (0.0-0.012); NRBC Pct Auto 0.0 /100WBC (0.0-0.2); Platelet Count 251 X10*3/uL (160-400); Red Blood Count 3.95 X10*6/uL (4.20-5.50); White Blood Count 5.2 X10*3/uL (4.8-10.8)
[2025-06-26 09:38] LABS: Alanine Aminotransferase 12 U/L (0-31); Albumin Level 5.0 g/dL (3.5-5.0); Alkaline Phosphatase 69 U/L (39-117); Anion Gap 12 (12-20); Aspartate Amino Transferase 27 U/L (5-31); Blood Urea Nitrogen 26 mg/dL (9-16); Calcium 9.4 mg/dL (8.4-10.2); Carbon Dioxide 28 mmol/L (22-29); Chloride 106 mmol/L (96-108); Creatinine Clr Calc Pharmacy 61.6; Estimated Glomerular Filt Rate > 60; Magnesium 2.2 mg/dL (1.6-2.6); Potassium 4.1 mmol/L (3.3-5.1); Sodium 142 mmol/L (135-145); Total Protein 7.3 g/dL (6.5-8.0)
[2025-06-26 09:46] LABS: Troponin-I High Sensitivity < 2.7 ng/L (<3.5-17.0)
[2025-06-26 09:48] VITALS: BP 103/60; PULSE 65; RESP 14; TEMP 36.8; O2SAT 98
[2025-06-26 10:02] LABS: Erythrocyte Sedimentation Rate 16 MM/HR (0-20)
[2025-06-26 12:14] VITALS: BP 118/64; PULSE 58; RESP 16; O2SAT 96
[2025-06-26] MEDS: Morphine Sulfate Immed Release 15 MG TABLET PO (13:46)
[2025-06-26 13:49] VITALS: BP 124/67; PULSE 67; RESP 18; TEMP 36.7; O2SAT 98
[2025-06-26 16:18] VITALS: BP 111/76; PULSE 70; RESP 14; TEMP 36.7; O2SAT 98
[2025-06-26 16:25] VITALS: BP 142/77; PULSE 70; RESP 18; TEMP 36.6; O2SAT 97
== END 2025-06-26 16:33 | disposition home or self-care (01) ==
PROVIDERS: Physician Assistant Medical; Emergency Provider Emergency Medicine; PCP Internal Medicine
DX: M25.512 Pain in left shoulder (principal); M25.522 Pain in left elbow; R07.9 Chest pain, unspecified
CPT/HCPCS: 36415; 71046; 73030; 73080; 80048; 80076; 83735; 84484; 85025; 85652; 86140; 93005; 96372; 99284; J1885

== ENCOUNTER → 2025-06-26 08:06 | Outpatient (BNV) | payer MEDICARE, OTHER, SELFPAY | PROVIDERS: Emergency Provider Emergency Medicine; PCP Internal Medicine; Visit Provider Radiology Diagnostic Ultrasound | DX: R07.9 Chest pain, unspecified (principal); M25.512 Pain in left shoulder | CPT/HCPCS: 71046 ==

== ENCOUNTER → 2025-06-26 08:42 | Outpatient (BNV) | payer MEDICARE, OTHER, SELFPAY | PROVIDERS: Emergency Provider Emergency Medicine; PCP Internal Medicine; Visit Provider Internal Medicine | DX: R07.9 Chest pain, unspecified (principal) | CPT/HCPCS: 93010 ==

== ENCOUNTER 2025-07-07 11:37 | Outpatient (AMB) | payer MEDICARE, OTHER, SELFPAY ==
[2025-07-07 11:40] VITALS: BP 122/78; PULSE 75; O2SAT 98; BMI 24.5
--- NOTE | 2025-07-07 11:40 | A.OFFPC_ITS ---
Vital Signs 07/07/25 11:40 Height 5 ft 4 in Weight 143 lb BMI 24.5 BP 122/78 Blood Pressure Location Rt brachial Position Sitting Pulse 75 Pulse Source Pulse Oximeter Pulse Oximetry (%) 98 Oxygen Delivery Method Room Air Intake Visit Reasons: Shoulder Pain Allergies codeine (CODEINE) Allergy (Intermediate, Verified 07/07/25 11:41) NAUSEA morphine Allergy (Unknown, Verified 07/07/25 11:41) nausea meperidine (Demerol) Adverse Reaction (Unknown, Verified 07/07/25 11:41) nausea,vomt From DEMEROL Adverse Reaction (Intermediate, Uncoded 07/07/25 11:41) NAUSEA Codeine Sulfate Adverse Reaction (Unknown, Uncoded 07/07/25 11:41) nausea,vomiting Tobacco use date assessed: 10/17/24 Dental Screening Dental Screen Date: 10/17/24 HPI HPI Comments History of Present Illness Details History of Present Illness The patient is a 54 year old individual presenting with left shoulder pain. The patient did not experience a fall or traumatic injury to the shoulder. The naseem ent had a recent emergency room visit on June 26, where a shoulder immobilizer was provided. Past medical history is notable for gastroesophageal reflux disease, migraines, and generalized anxiety disorder. The patient noted a weight loss of 36 pounds, which was achieved by eliminating chocolate and ice cream from the diet. The patient does not engage in regular exercise. An imaging study performed during the ER visit revealed a non-specific finding described as a bone island or sclerosis. The patient also reports pain in the left groin, left knee, and left back. The last mammogram was in July 2019. Health Maintenance - The patient has lost 36 pounds through dietary changes, specifically by stopping consumption of chocolate and ice cream. - The patient does not currently engage in regular exercise. - The patient's last mammogram was in 2018. Social History - Diet: The patient reports a recent ivelisse ght loss of 36 pounds attributed to eliminating chocolate and ice cream. - Exercise: The patient denies any regul ar exercise or use of weights. - Sleep Habits: The patient reports slee ping on the left side. Results - Prior Imaging: A report from a recent ER visit mentioned a finding of a non- specific bone island or sclerosis in the shoulder. [facility] Medical History Vaginal atrophy Dyspareunia, female At high risk for breast cancer Abnormal mammogram Basal 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 Bad odor of urine Fatigue Polyarthralgia Anxiety Surgical History History of cataract surgery Status post laminectomy with spinal fusion History of lumbar fusion History of delivery Family History Paternal Aunt Ovarian cancer Paternal Grandmother Breast cancer Maternal Grandmother Breast cancer Mother Breast cancer Maternal Aunt Breast cancer Social History Housing: House Alcohol intake: never Patient Tobacco Use Status: Never used Tobacco Tobacco use type: Cigarette e-Cigarette/Vaping Use: Never Used Second Hand Smoke Exposure: No service: No Current occupational status: unemployed Cognitive needs: No Hearing needs: Yes (hearing aide) Vision needs: Yes (reading glasses) Female Reproductive History Menstrual Age of Menarche: 11 Questionnaire PHQ-9 Over the last 2 weeks, how often have you been bothered by any of the following problems? 1. Little interest or pleasure in doing things: nearly every day 2. Feeling down, depressed, or hopeless: not at all 3. Trouble falling or staying asleep, or sleeping too much: not at all 4. Feeling tired or having little energy: not at all 5. Poor appetite or overeating: not at all 6. Feeling bad about yourself - or that you are a failure or have let yourself or your family down: not at all 7. Trouble concentrating on things, such as reading the newspaper or watching television: not at all 8. Moving or speaking so slowly that other people could have noticed. Or the opposite - being so fidgety or restless that you have been moving around a lot more than usual: not at all 9. Thoughts that you would be better off or of hurting yourself in some way: not at all Total score: 3 Depression Screening Interpretation: Positive Depression Screening Done: Yes Source: Developed by Drs. Atul Aguilar, Cyndi Baig, Eze Purvis and colleagues, with an educational alisha from [employer]. Thrive Questionnaire Date Thrive assessed: 10/17/24 I am a: Patient What is your living situation today?: I have a steady place to live Within the past 12 months, did the food you bought not last and you didn't have the money to get more?: Never true Within the past 12 months, did you worry whether your food would run out before you got money to buy more?: Never true Do you have trouble paying for medicines?: No Do you have trouble getting transportation to medical appointments?: No Do you have trouble paying your heating and electricity bill?: No Do you have trouble taking care of your child, family member or friend?: No Do you have trouble with day-to-day activities such as bathing, preparing meals, shopping, managing finances, etc.?: No Are you currently unemployed and looking for a job?: No Are you interested in more education?: No Please select the resources that you would like help with: None Currently or been in a relationship where the following occur: No concerns reported THRIVE Score: 0 AUDIT C Alcohol Use Questionnaire (AUDIT-C) 1. How often do you have a drink containing alcohol?: Never 3. How often do you have six or more drinks on one occasion?: Never Total Score: 0 ZEINA-7 AMB Questionnaire ZEINA-7 Date ZEINA - 7 assessed: 10/17/24 Feeling nervous, anxious, or on edge: 1 = Several days Not being able to stop or control worryin = Several days Worrying too much about different things: 1 = Several days Trouble relaxin = Not at all Being so restless that it is hard to sit still: 0 = Not at all Becoming easily annoyed or irritable: 0 = Not at all Feeling afraid as if something awful might happen: 0 = Not at all Total ZEINA-7 score (0-4 normal; 5-9 mild; 10-14 moderate; 15-21 severe): 3 Source: Developed by Drs. Atul Aguilar, Cyndi Baig, Eze Purvis and colleagues, with an educational alisha from [employer]. Review of Systems Narrative Review of Systems - Musculoskeletal: Reports pain in the anterior left shoulder, left groin, left knee, and left-sided back pain. - Constitutional: Reports a significant weight loss of 36 pounds. - Integumentary: Denies any rash, redness, or skin changes on the shoulder. Physical exam (Primary Care) Vital Signs: Last Vital Signs Pulse 75 07/07/25 11:40 BP 122/78 07/07/25 11:40 Pulse Ox 98 07/07/25 11:40 Oxygen Delivery Method Room Air 07/07/25 11:40 BMI result Body Mass Index 24.5 Tobacco/Smoking Status: Tobacco use Status Tobacco use date assessed 10/17/24 07/07/25 11:45 Patient Tobacco Use Status Never used Tobacco 07/07/25 11:45 Tobacco use type Cigarette 07/07/25 11:45 e-Cigarette/Vaping Use Never Used 07/07/25 11:45 PHQ-9: PHQ-9 Score PHQ-9: Total score 3 07/07/25 11:52 Depression Screening Interpretation: Positive Thrive Assessment: Date of Thrive Assessment Date Thrive assessed 10/17/24 07/07/25 11:45 Currently or been in a relationship where the following occur: No concerns reported Narrative Physical Exam - Musculoskeletal: - Left Shoulder: No rash or skin changes are visible. - There is tenderness to palpation on the anterior aspect of the shoulder. - There is no tenderness over the rotator cuff area. - The patient is able to actively elevate the arm to approximately 110 degrees. - There is limitation with posterior movement. - Neurological: - Hand kiln burner helper are assessed as adequate. - Upper extremity strength against resistance is intact. Const General: alert; No acute distress Eyes Conjunctivae: conjunctivae normal Resp Auscultation: clear to auscultation bilaterally Cardio Rate: regular rate Rhythm: regular rhythm GI Inspection: Yes normal to inspection Neuro Other: Patient complains of pain on the anterior left shoulder non on the superior part none on the rotator cuff area patient is able to elevate the arm to about 110 degrees with no limitation patient is not able to posteriorly move the left shoulder, patient denies any rash or color changes on the shoulder. Extrem General: Yes normal to inspection and No edema Coding Level of Care Code Est Pt Level 3 (03209) Diagnoses Left shoulder pain M25.512 Assessment & Plan Assessment & Plan (1) Left shoulder pain: Code(s): M25.512 - Pain in left shoulder Category: Medical Plan Plan Patient was informed and verbally consented to the use of an ambient scribe for clinic note documentation during this visit. 1. Left Shoulder Pain The patient's symptoms are localized to the anterior shoulder, which is more suggestive of tendon inflammation than a rotator cuff pathology. An MRI of the left shoulder will be ordered to further evaluate the condition, although it is anticipated that insurance may require a course of physical therapy prior to approval. An order for physical therapy for three months will be placed. A referral to an orthopedics specialist has already been submitted, and the patient will await contact from their office to schedule an appointment. The patient may continue using Tylenol as needed for pain management. Discussion Notes I discussed with the patient that the symptoms are consistent with tendon inflammation in the front of the shoulder, and a rotator cuff injury seems less likely. I have ordered an MRI of the left shoulder, but I explained that insuran ce often requires a trial of physical therapy, typically for three months, before authorizing the scan. I confirmed that a referral to [facility] has already been sent and advised the patient to wait for their call to schedule an appointment. We reviewed the ER report mentioning a bone island, and I explained that this is often a non-specific finding and likely not serious. The patient is managing pain with Tylenol and can continue to do so. Patient Instructions - A referral has already been sent to [facility] for your left shoulder pain. - Please wait for their office to call you to schedule an appointment. - We have ordered an MRI for your shoulder. - However, your insurance may require you to complete about three months of physical therapy before they will approve the MRI. - We will also order physical therapy for you. - You may continue to take Tylenol for pain as you have been doing. - Try to be careful with movements of your left shoulder to avoid making the pain worse. Orders: Orders MR shoulder LT wo con Today M25.512 - Pain in left shoulder PT Evaluation and Treatment Today M25.512 - Pain in left shoulder
== END 2025-07-07 12:04 | disposition home or self-care (01) ==
LOC: HO.HMCH 11:38
PROVIDERS: PCP Internal Medicine; Visit Provider Internal Medicine
DX: M25.512 Pain in left shoulder (principal)

== ENCOUNTER → 2025-07-07 11:37 | Outpatient (BNVA) | payer MEDICARE, OTHER, SELFPAY | PROVIDERS: PCP Internal Medicine; Visit Provider Internal Medicine | DX: M25.512 Pain in left shoulder (principal) | CPT/HCPCS: 99212 ==

== ENCOUNTER 2025-08-04 19:45 | Outpatient (REF) | payer MEDICARE, OTHER, SELFPAY ==
--- NOTE | ~2025-08-04 | MR_ITS ---
CLINICAL HISTORY: M25.512 - Pain in left shoulder Exam: Nonenhanced MRI of the left shoulder. Comparison: Radiographs dated 06/26/2025. Rotator cuff: Supraspinatus tendinosis is present with equivocal tiny intrasubstance partial-thickness tear (8; 12 and 13). No full-thickness tear. Infraspinatus tendon reveals slight tendinosis, without definable tear. Subscapularis tendon appears intact. Glenoid labrum: There is a superior glenoid labral SLAP lesion (8; 10 -12), with tear extending to the anterior superior glenoid labrum (5; 10 -12). No other definable labral tears. Bicipital tendon: Bicipital tendon is within its expected position in the intertubercular groove. Bicipital anchor otherwise appears intact (with the exception of the SLAP lesion) Acromioclavicular joint: Unremarkable Joint space and soft tissues: Trace joint effusion. No bursal collections. Impression: 1. SLAP lesion, with anterior superior glenoid labral tear as well. 2. Supraspinatus tendinosis with equivocal very tiny intrasubstance partial-thickness tear. No full-thickness tear. This document has been electronically signed by: Ezekiel Angel MD on 08/06/2025 18:53:48
--- OUTSIDE RECORDS SUMMARY | 2025-08-04 19:53 | XMS_ITS | Clinical Summary ---
Author Organization [facility] Address [address] [place], [place] [id number] Care Team Providers Care Boss Dyer Name Role Phone Po, Lorenver Primary Care Provider [phone] Po, Lorenver Unavailable Allergies Active Allergy Reactions Criticality Noted Date Comments Codeine Other (See Comments) 06/07/2024 Vomiting/nausea Oxycodone Other (See Comments) 03/29/2020 Other Reaction(s): Vomiting/Nausea Tramadol Other (See Comments) 03/29/2020 Other Reaction(s): Vomiting/Nausea Medications MAGNESIUM ORAL -- Activ e meloxicam (MOBIC) 15 MG tablet Take 1 tablet (15 mg total) by mouth daily. 04/24/2024 Active cholecalciferol 1,000 unit tablet Take 1 tablet (1,000 Units total) by mouth daily. 04/22/2024 Active escitalopram oxalate (LEXAPRO) 10 MG tablet Take 1 tablet (10 mg total) by mouth daily. 12/15/2024 Active YUVAFEM 10 mcg Tab Insert 1 tablet (10 mcg total) into the vagina 2 times a week. Active Hospital, Clinic, or Other Facility Administered Medication Ordered Dose Route Frequency Start Date End Date Status triamcinolone acetonide (KENALOG-80) injection 80 mg 80 mg Inj Once 06/17/2024 Active triamcinolone acetonide (KENALOG-80) injection 80 mg 80 mg Inj Once 12/17/2024 Active BUPivacaine (PF) 0.25 % (2.5 mg/mL) injection 10 mL 25 mg IAtc Once 02/24/2025 Ac tive Active Problems No known active problems Social History Tobacco Use Types Packs/Day Years Used Date Smoking Tobacco: Never Assessed Comments Unknown Sex and Gender Information Value Date Recorded Sex Assigned at Female 05/21/2024 11:33 AM EDT Legal Sex Female 11:23 PM EST Gender Identity Female 05/21/2024 11:33 AM EDT Sexual Orientation Not on file Last Filed Vital Signs Vital Sign Reading Time Taken Comments Blood Pressure 140/74 02/24/2025 10:17 AM EDT Pulse 63 02/24/2025 9:37 AM EDT Temperature 36.3 C (97.4 F) 02/24/2025 9:37 AM EDT Respiratory Rate 14 12/17/2024 8:28 AM EDT Oxygen Saturation 100% 02/24/2025 10:17 AM EDT Inhaled Oxygen Concentration - - Weight 74.8 kg (165 lb) 02/24/2025 9:37 AM EDT Height 162.6 cm (5' 4 ) 02/24/2025 9:37 AM EDT Body Mass Index 28.32 02/24/2025 9:37 AM EDT Plan of Treatment Health Maintenance Due Date Last Done Comments Hemoglobin A1c 1969 Lipid Panel 1969 Depression Screening 1981 Hepatitis C Screening 12/12/1987 DTaP,Tdap,and Td Vaccines (1 - Tdap) 1988 Pap Smear 1990 Medicare Initial AWV [id number] 01/05/1993 Cervical Cancer Screening 12/12/1999 HPV/Cotest 12/12/1999 Breast Cancer Screening 2009 CT Colonography 2014 Colonoscopy 2014 Colorectal Cancer Screening 2014 FIT 2014 FOBT 2014 Multitarget Stool DNA (Cologuard) 2014 Sigmoidoscopy 2014 Pneumococcal Vaccine: 50+ Years (1 of 1 - PCV) 12/12/2019 Zoster Vaccine (1 of 2) 12/12/2019 COVID-19 Vaccine (4 - season) 2025 07/19/2021, 10/12/2020, 09/21/2020 Influenza Vaccine (#1) 2025 , 07/19/2021, 05/14/2019, Additional history exists Blood Pressure 02/24/2026 02/24/2025 Meningococcal B Vaccines Aged Out No longer eligible based on patient's age to complete this topic Meningococcal Vaccines Aged Out No lo nger eligible based on patient's age to complete this topic Insurance [facility] MED[facility] [employer] Care Teams Boss Dyer Relationship Specialty Start Date End Date Henrik Skelton [address] [address] PCP - General 06/07/24 Henrik Skelton [address] [address] PCP - Insurance Assigned PCP 09/13/24
--- OUTSIDE RECORDS SUMMARY | 2025-08-04 19:53 | XMS_ITS | Patient Health Record ---
Author Organization [facility] Address [address] [place] [address] Care Team Providers Care Clinical Documentation Consultant Name Role Phone Henrik Skelton Primary Care Provider Katelynn Cardoza Unavailable [phone] Allergies Allergen (clinical drug ingredient) Drug/Non Drug [...] Insured Coverage Start Date Coverage End Date [facility] [address] [place] [address] [id number] Fermin Perdomo Spouse - patient is the spouse of the insured 4 [facility] [employer] Claims [address] [place] [id number] Sharonda [place] Self - patient is the insured Medical (General) History Medical History History ICD Code Arthritis Back,Hip,and Knee pain Cataracts Chicken pox covid-19 Joint implants/screws Surgical History Surgery Date(Month/Year) breast biopsy low lumbar fusion 1998 cesearean section 1992 cataracts OU 2011 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
== END 2025-08-04 19:46 | disposition home or self-care (01) ==
LOC: HO.MRI 19:45
PROVIDERS: PCP Internal Medicine; Visit Provider Internal Medicine
DX: M25.512 Pain in left shoulder (principal)
CPT/HCPCS: 73221